=== PATIENT | female | born 1945 | race Caucasian/White ===

== ENCOUNTER → 2016-07-20 | Outpatient (CLI) | payer MEDICARE ==
[~2016-07-20] MED LIST: ASCO500T8 PO; BECL8.7A6 INH; CALC1CAP8 PO; CALC1TAB PO; CHOL40002 PO; ERGO2000 PO; FORM20VI INH; GUAI600T53 PO; IPRA4AER INH; MONT10TA6 PO; MULT-717 PO; OMNIPAQUE 350 MG/ML, 100ML BOTTLE ONE; OXYC-302 PO; THIA100T52 PO
== END | disposition home or self-care (01) ==
LOC: CFH 11:19
PROVIDERS: ATTEND Internal Medicine
DX: C20 Malignant neoplasm of rectum (principal); I70.0 Atherosclerosis of aorta; C78.02 Secondary malignant neoplasm of left lung; M51.34 Other intervertebral disc degeneration, thoracic region; R91.8 Other nonspecific abnormal finding of lung field; D73.89 Other diseases of spleen; K76.0 Fatty (change of) liver, not elsewhere classified; R16.0 Hepatomegaly, not elsewhere classified
CPT/HCPCS: 71260; 74177; Q9967

== ENCOUNTER → 2016-11-11 | Outpatient (CLI) | payer MEDICARE | END | disposition home or self-care (01) | LOC: CFH 10:46 | PROVIDERS: ATTEND Internal Medicine | DX: C78.01 Secondary malignant neoplasm of right lung (principal); C78.02 Secondary malignant neoplasm of left lung; C20 Malignant neoplasm of rectum; K76.0 Fatty (change of) liver, not elsewhere classified; R91.8 Other nonspecific abnormal finding of lung field; R16.0 Hepatomegaly, not elsewhere classified; I70.0 Atherosclerosis of aorta; N28.1 Cyst of kidney, acquired | CPT/HCPCS: 71260; 74177; Q9967 ==

== ENCOUNTER → 2017-02-10 | Outpatient (CLI) | payer MEDICARE ==
[~2017-02-10] MED LIST changes: -GUAI600T53 PO; +GUAI600T80 PO
== END | disposition home or self-care (01) ==
LOC: CFH 12:30
PROVIDERS: ATTEND Internal Medicine
DX: C78.02 Secondary malignant neoplasm of left lung (principal); M51.34 Other intervertebral disc degeneration, thoracic region; M41.84 Other forms of scoliosis, thoracic region; R16.0 Hepatomegaly, not elsewhere classified; K76.0 Fatty (change of) liver, not elsewhere classified; N28.1 Cyst of kidney, acquired; C20 Malignant neoplasm of rectum; M51.36 Other intervertebral disc degeneration, lumbar region
CPT/HCPCS: 71260; 74177; Q9967

== ENCOUNTER → 2017-07-19 | Outpatient (CLI) | payer MEDICARE | END | disposition home or self-care (01) | LOC: CFH 14:25 → EDSTATUS 15:15 | PROVIDERS: ATTEND Internal Medicine | DX: K76.89 Other specified diseases of liver (principal); R91.8 Other nonspecific abnormal finding of lung field; R16.0 Hepatomegaly, not elsewhere classified; C20 Malignant neoplasm of rectum | CPT/HCPCS: 71260; 74177; Q9967 ==

== ENCOUNTER → 2017-10-14 | Outpatient (CLI) | payer MEDICARE | END | disposition home or self-care (01) | LOC: CFH 09:52 | PROVIDERS: ATTEND Internal Medicine | DX: K76.89 Other specified diseases of liver (principal); R91.8 Other nonspecific abnormal finding of lung field; C20 Malignant neoplasm of rectum | CPT/HCPCS: 71260; 74177; Q9967 ==

== ENCOUNTER → 2018-01-13 | Outpatient (CLI) | payer MEDICARE | END | disposition home or self-care (01) | LOC: CFH 11:19 | PROVIDERS: ATTEND Internal Medicine | DX: R91.8 Other nonspecific abnormal finding of lung field (principal); R59.0 Localized enlarged lymph nodes; R16.0 Hepatomegaly, not elsewhere classified; C20 Malignant neoplasm of rectum; J44.9 Chronic obstructive pulmonary disease, unspecified; Z87.891 Personal history of nicotine dependence | CPT/HCPCS: 71260; 74177; Q9967 ==

== ENCOUNTER → 2018-05-08 | Outpatient (CLI) | payer MEDICARE | END | disposition home or self-care (01) | LOC: RAD 12:26 | PROVIDERS: ATTEND Internal Medicine | DX: C20 Malignant neoplasm of rectum (principal); R91.8 Other nonspecific abnormal finding of lung field; R59.1 Generalized enlarged lymph nodes; R16.0 Hepatomegaly, not elsewhere classified | CPT/HCPCS: 71260; 74177; Q9967 ==

== ENCOUNTER → 2018-08-10 | Outpatient (CLI) | payer MEDICARE, MEDICAID | END | disposition home or self-care (01) | LOC: CFH 09:52 | PROVIDERS: ATTEND Internal Medicine | DX: C20 Malignant neoplasm of rectum (principal); C78.00 Secondary malignant neoplasm of unspecified lung; R91.8 Other nonspecific abnormal finding of lung field; N28.1 Cyst of kidney, acquired; R16.0 Hepatomegaly, not elsewhere classified; I25.10 Atherosclerotic heart disease of native coronary artery without angina pectoris; I70.0 Atherosclerosis of aorta; M47.815 Spondylosis without myelopathy or radiculopathy, thoracolumbar region; D73.89 Other diseases of spleen; K76.89 Other specified diseases of liver; Z88.9 Allergy status to unspecified drugs, medicaments and biological substances | CPT/HCPCS: 71260; 74177; Q9967 ==

== ENCOUNTER → 2018-11-03 | Outpatient (CLI) | payer MEDICARE, MEDICAID | END | disposition home or self-care (01) | LOC: CFH 13:14 | PROVIDERS: ATTEND Internal Medicine | DX: C20 Malignant neoplasm of rectum (principal); I70.0 Atherosclerosis of aorta; R91.8 Other nonspecific abnormal finding of lung field; J98.11 Atelectasis; R59.0 Localized enlarged lymph nodes; M85.88 Other specified disorders of bone density and structure, other site; M47.814 Spondylosis without myelopathy or radiculopathy, thoracic region; M41.84 Other forms of scoliosis, thoracic region; K76.89 Other specified diseases of liver; N28.1 Cyst of kidney, acquired; Z98.890 Other specified postprocedural states | CPT/HCPCS: 71260; 74177; Q9967 ==

== ENCOUNTER 2019-02-27 08:32 | Day surgery (SDC) | payer MEDICARE, MEDICAID ==
[~2019-02-27] VITALS: Ht 162.6 cm; Wt 79.9 kg
[~2019-02-27 08:32] MED LIST changes: -OMNIPAQUE 350 MG/ML, 100ML BOTTLE ONE
[2019-02-27 09:23] VITALS: BP 123/74
[2019-02-27] MEDS ORDERED: LACTATED RINGERS 1,000 ML IV SCH (09:25)
[2019-02-27] MEDS ORDERED: CEFAZOLIN 1,000 MG in SODIUM CHLORIDE 0.9% 50 ML IV ONE (09:30)
[2019-02-27] MEDS ORDERED: [UNRECOGNIZED DRUG - OTHER] SQ (09:33)
[2019-02-27] MEDS ORDERED: CEFAZOLIN PMX 1GM/50ML 50 ML ONE (09:38)
[2019-02-27] MEDS ORDERED: LIDOCAINE 1%, 20ML ONE (09:45)
[2019-02-27] MEDS ORDERED: IPRA4AER INTRATRACH (10:11)
[2019-02-27] MEDS ORDERED: ALBU0.63 NEB (10:11)
[2019-02-27] MEDS ORDERED: FENTANYL PF 100 MCG/2ML ONE (11:24)
[2019-02-27] MEDS ORDERED: FLUMAZENIL 0.1 MG/1 ML, 5ML ONE (11:25)
[2019-02-27] MEDS ORDERED: NALOXONE 1 MG/ML, 2ML ONE (11:25)
[2019-02-27] MEDS ORDERED: MIDAZOLAM 1 MG/ML, 5ML ONE (11:25)
[2019-02-27] MEDS ORDERED: LIDOCAINE 1%, 10ML ONE (12:11)
== END 2019-02-27 13:36 | disposition home or self-care (01) ==
LOC: OUT 08:32
PROVIDERS: ATTEND Internal Medicine
DX: Z45.2 Encounter for adjustment and management of vascular access device (principal); C78.5 Secondary malignant neoplasm of large intestine and rectum; C34.92 Malignant neoplasm of unspecified part of left bronchus or lung; M25.561 Pain in right knee; E11.9 Type 2 diabetes mellitus without complications; J44.9 Chronic obstructive pulmonary disease, unspecified; E83.42 Hypomagnesemia; I10 Essential (primary) hypertension; Z79.84 Long term (current) use of oral hypoglycemic drugs
CPT/HCPCS: 36561; 77001; 99156; 99157; C1788; J0690; J1642; J2250; J3010; J2310

== ENCOUNTER 2019-03-29 23:05 | Inpatient (IN) | payer MEDICAID, MEDICARE ==
[~2019-03-29] VITALS: Ht 162.6 cm; Wt 68.7 kg
[~2019-03-29 23:05] MED LIST changes: +ALBU0.63 NEB; +IPRA4AER INTRATRACH; +[UNRECOGNIZED DRUG - OTHER] SQ
--- NOTE | 2019-03-29 23:38 | NUR ---
PLEAS[facility] LADY HERE ON CHEMO FOR COLON CANCER, LAST TREAMENT 2 WEEKS AGO ON TUESDAY, SINCE THAT TIME SHE HAS BEEN HAVING LOWER EXTREMITY PAIN WHICH THE [facility] TOLD HER WILL HAPPEN, PT STATES THAT THE PAIN RESOLVED ON THE R LEG HOWEVER THE LLE CONTINUES TO BE PAINFUL IN THE CALF AND HER TOES FEEL COLD, PULSE IS NOTED. PT STATES THAT IT BECAME WORSE ON TUESDAY.
--- NOTE | 2019-03-29 23:42 | NUR ---
JAMESON MORGAN STATES THAT SHE CAN NOT FEEL A PULSE, DOPPLER AND DR ELLIOTT TO BEDSIDE AT THIS TIME.
[2019-03-29] MEDS ORDERED: OMNIPAQUE 350 MG/ML, 100ML BOTTLE ONE (23:46)
[2019-03-30] MEDS ORDERED: SODIUM CHLORIDE FLUSH 10ML SYR IVF ONE
[2019-03-30] MEDS ORDERED: ONDANSETRON 2MG/ML, 2ML IVPush ONE
[2019-03-30] MEDS ORDERED: ONDANSETRON 2MG/ML, 2ML ONE (00:05)
[2019-03-30] MEDS ORDERED: MORPHINE SULFATE 4 MG/ML, 1ML ONE ×3 (00:06→02:25)
[2019-03-30 00:11] LABS: MEAN CORPUSCULAR HEMOGLOBIN 33.3 pg (27.0-34.8); MEAN CORPUSCULAR HGB CONC 33.3 g/dL (32.4-35.8); MEAN CORPUSCULAR VOLUME 100.1 fL (80-100); MEAN PLATELET VOLUME 9.2 fL (7.4-10.4); PLATELET COUNT 94 x10^3/uL (130-400); RED BLOOD COUNT 4.66 x10^6/uL (3.82-5.3); RED CELL DISTRIBUTION WIDTH 14.7 % (9.6-15.2)
[2019-03-30] MEDS: MORPHINE SULFATE 4 MG/ML, 1ML IVPush PRN ×2 (00:12→00:45)
--- NOTE | 2019-03-30 00:13 | NUR ---
US AT BEDSIDE, PORT ACCESSED PT MEDICATED FOR PAIN PER ORDER. TOLERATE WELL. CALL [facility] IN [place] AND AWARE OF USE, FAMILY AT BEDSIDE
[2019-03-30 00:14] LABS: ALANINE AMINOTRANSFERASE 47 U/L (12-78); ALBUMIN 3.7 g/dL (3.4-5.0); ANION GAP 8 mmol/L (5-15); CALCIUM 9.5 mg/dL (8.5-10.1); CHLORIDE 109 mmol/L (98-107)
[2019-03-30 00:16] LABS: ALKALINE PHOSPHATASE 214 U/L (45-117); TOTAL PROTEIN 7.7 g/dL (6.4-8.2)
[2019-03-30 00:39] LABS: BASOPHILS # (AUTO) 0.02 x10^3/uL (0-0.1); BASOPHILS % (AUTO) 0 % (0-1); EOSINOPHILS # (AUTO) 0.08 x10^3/uL (0-0.4); EOSINOPHILS % (AUTO) 1 % (1-7); LYMPHOCYTES # (AUTO) 0.96 x10^3/uL (1-3.4); LYMPHOCYTES % (AUTO) 9 % (22-44); MD SCAN; MONOCYTES # (AUTO) 0.89 x10^3/uL (0.2-0.8); MONOCYTES % (AUTO) 9 % (2-9); NEUTROPHILS # (AUTO) 8.56 x10^3/uL (1.8-6.8); NEUTROPHILS % (AUTO) 81 % (42-75)
--- NOTE | 2019-03-30 00:45 | NUR ---
PT TO CT AT THIS TIME, MEDICATED FOR PAIN PRIO TO GOING.
--- NOTE | 2019-03-30 01:43 | NUR ---
PT RESTING MORE COMFORTABLY AT THIS TIME, AWAIT CT READ. FAMILY AT BEDSIDE
[2019-03-30] MEDS ORDERED: HEPARIN 5,000 UNITS/ML, 1ML ONE (02:24)
[2019-03-30] MEDS ORDERED: HEPARIN 25,000 UNITS/500ML PMX 500 ML ONE (02:25)
[2019-03-30 02:30] LABS: INTERNATIONAL NORMALIZED RATIO 1.08 (0.93-1.1); PROTHROMBIN TIME 11.3 Seconds (9.6-11.5)
[2019-03-30] MEDS ORDERED: HEPARIN 5,000 UNITS/ML, 1ML IV ONE (02:30)
[2019-03-30] MEDS ORDERED: HEPARIN 5,000 UNITS/ML, 1ML IV PRN ×2 (02:30→09:30)
[2019-03-30] MEDS ORDERED: HEPARIN 25,000 UNITS/500ML PMX 500 ML IV PRN ×2 (02:30→09:30)
[2019-03-30] MEDS ORDERED: ONDANSETRON 2MG/ML, 2ML IVPush PRN ×2 (02:30→04:00)
[2019-03-30] MEDS ORDERED: MORPHINE SULFATE 4 MG/ML, 1ML IVPush PRN (02:30)
[2019-03-30 03:10] VITALS: BP 146/82
[2019-03-30] MEDS ORDERED: SODIUM CHLORIDE 0.9% 1,000 ML IV SCH ×2 (03:45→08:00)
[2019-03-30] MEDS ORDERED: ONDANSETRON ODT 4 MG PO PRN (04:00)
[2019-03-30] MEDS ORDERED: POLYETHYLENE GLYCOL 17 GM PACKET PO PRN (04:00)
[2019-03-30] MEDS ORDERED: hydrALAzine 20 MG/ML, 1ML IVPush PRN (04:00)
[2019-03-30] MEDS ORDERED: PROMETHAZINE 25 MG/ML, 1ML IM PRN (04:00)
[2019-03-30] MEDS ORDERED: ACETAMINOPHEN 325 MG TABLET PO PRN (04:00)
[2019-03-30] MEDS: OXYcodone IR 5MG TABLET PO PRN ×3 (04:25→18:20)
[2019-03-30] MEDS ORDERED: ALBUTEROL SULFATE 2.5 MG/3 ML NPPB PRN (04:30)
[2019-03-30 06:57] LABS: FREE T4 (FREE THYROXINE) 1.19 ng/dL (0.76-1.46)
[2019-03-30 07:48] VITALS: BP 169/89
[2019-03-30 14:19] VITALS: BP 151/81
[2019-03-30] MEDS: morphine SULFATE 10 MG/ML, 1ML IVPush PRN ×3 (14:32→22:58)
[2019-03-30] MEDS ORDERED: VISIPAQUE 270 MG/ML, 150ML BOTTLE ONE (15:00)
[2019-03-30] MEDS ORDERED: FENTANYL PF 100 MCG/2ML ONE ×2 (15:11)
[2019-03-30] MEDS ORDERED: NALOXONE 1 MG/ML, 2ML ONE (15:12)
[2019-03-30] MEDS ORDERED: NITROGLYCERIN 5 MG/ML, 10ML ONE (15:12)
[2019-03-30] MEDS ORDERED: FLUMAZENIL 0.1 MG/1 ML, 5ML ONE (15:12)
[2019-03-30] MEDS ORDERED: PROTAMINE SULFATE 10 MG/ML, 25ML ONE (15:12)
[2019-03-30] MEDS ORDERED: MIDAZOLAM 1 MG/ML, 5ML ONE (15:12)
[2019-03-30] MEDS ORDERED: HEPARIN 1,000 UNITS/ML, 10ML ONE (15:14)
[2019-03-30] MEDS ORDERED: ALTEPLASE 10 MG in SODIUM CHLORIDE 0.9% 90 ML IV SCH ×2 (15:30→17:30)
[2019-03-30] MEDS ORDERED: LIDOCAINE 1%, 10ML ONE (15:32)
[2019-03-30] MEDS: ALTEPLASE 10 MG in SODIUM CHLORIDE 0.9% 90 ML INJ SCH ×2 (17:29→21:48)
[2019-03-30] MEDS ORDERED: HEPARIN 25,000 UNITS/500ML PMX 500 ML INJ SCH ×2 (17:30)
[2019-03-30] MEDS ORDERED: ONDANSETRON 2MG/ML, 2ML IV PRN (18:00)
[2019-03-30] MEDS: LACTATED RINGERS 1,000 ML IV SCH (18:04)
[2019-03-30] MEDS: CEFAZOLIN 2,000 MG in SODIUM CHLORIDE 0.9% 50 ML IV SCH (20:25)
[2019-03-30] MEDS ORDERED: INSULIN LISPRO 100 UNITS/ML, PEN SQ-INSULIN SCH (21:00)
[2019-03-30] MEDS: INSULIN LISPRO 100 UNITS/ML, PEN SQ-INSULIN SCH (21:27)
[2019-03-30 23:53] LABS: FIBRINOGEN 259 mg/dL (200-340); PARTIAL THROMBOPLASTIN TIME 34 Seconds (25-31)
[2019-03-31] LABS: INTERNATIONAL NORMALIZED RATIO 1.15 (0.93-1.1)
[2019-03-31 00:47] LABS: MEAN CORPUSCULAR HEMOGLOBIN 32.5 pg (27.0-34.8); MEAN CORPUSCULAR HGB CONC 32.6 g/dL (32.4-35.8); MEAN CORPUSCULAR VOLUME 99.7 fL (80-100); RED BLOOD COUNT 4.24 x10^6/uL (3.82-5.3); RED CELL DISTRIBUTION WIDTH 15.1 % (9.6-15.2)
[2019-03-31 00:52] LABS: MEAN PLATELET VOLUME 8.7 fL (7.4-10.4); PLATELET COUNT 25 x10^3/uL (130-400)
[2019-03-31 01:20] LABS: MD YES
[2019-03-31 01:28] LABS: BAND#(MANUAL) 0.17 x10^3/uL; BANDS%(MANUAL) 3 % (0-7); LYMPH#(MANUAL) 0.81 x10^3/uL (1-3.4); LYMPHS% (MANUAL) 14 % (22-44); MONOS% (MANUAL) 12 % (2-9); SEG#(MANUAL) 4.12 x10^3/uL (1.8-6.8); SEGS% (MANUAL) 71 % (42-75)
[2019-03-31 01:30] LABS: <PLATELET ESTIMATE> DECREASED; <PLT MORPHOLOGY> NORMAL PLT MORPH; <RBC MORPHOLOGY> NORMAL
[2019-03-31] MEDS ORDERED: ARGATROBAN 250 MG in SODIUM CHLORIDE 0.9% 247.5 ML IV PRN ×3 (01:30→13:00)
[2019-03-31 02:14] LABS: HIT RESULT NEGATIVE (NEGATIVE)
[2019-03-31] MEDS: CEFAZOLIN 2,000 MG in SODIUM CHLORIDE 0.9% 50 ML IV SCH ×3 (02:44→22:43)
[2019-03-31] MEDS: INSULIN LISPRO 100 UNITS/ML, PEN SQ-INSULIN SCH ×4 (03:30→22:06)
[2019-03-31] MEDS: LACTATED RINGERS 1,000 ML IV SCH ×3 (04:01→23:50)
[2019-03-31 04:43] LABS: CHLORIDE 105 mmol/L (98-107)
[2019-03-31 04:44] LABS: INTERNATIONAL NORMALIZED RATIO 1.29 (0.93-1.1); PROTHROMBIN TIME 13.4 Seconds (9.6-11.5)
[2019-03-31 04:51] LABS: ALANINE AMINOTRANSFERASE 72 U/L (12-78); ALBUMIN 2.7 g/dL (3.4-5.0); ALKALINE PHOSPHATASE 156 U/L (45-117); ANION GAP 6 mmol/L (5-15); BILIRUBIN,TOTAL 0.6 mg/dL (0.2-1.0); CALCIUM 8.3 mg/dL (8.5-10.1); CHOL/HDL RATIO 4.9; CHOLESTEROL, TOTAL 168 mg/dL (140-239); HDL CHOL % 20 % (28-40); HDL CHOLESTEROL (DIRECT) 34 mg/dL (40-60); LDL CHOLESTEROL,CALCULATED 104 mg/dL (54-169); LDL/HDL RATIO 3.1 (0.5-3.0); MEAN CORPUSCULAR HEMOGLOBIN 32.7 pg (27.0-34.8); MEAN CORPUSCULAR HGB CONC 32.9 g/dL (32.4-35.8); MEAN CORPUSCULAR VOLUME 99.3 fL (80-100); RED BLOOD COUNT 4.09 x10^6/uL (3.82-5.3); RED CELL DISTRIBUTION WIDTH 15.2 % (9.6-15.2); TOTAL PROTEIN 6.4 g/dL (6.4-8.2); TRIGLYCERIDES 152 mg/dL (50-200); VLDL CHOLESTEROL 30 mg/dL (0-25)
[2019-03-31 05:39] LABS: MD YES
[2019-03-31 05:43] LABS: PLATELET COUNT 26 x10^3/uL (130-400)
[2019-03-31 05:44] LABS: BANDS%(MANUAL) 5 % (0-7); BASOS#(MANUAL) 0.06 x10^3/uL (0-0.1); BASOS% (MANUAL) 1 % (0-1); EOS#(MANUAL) 0.18 x10^3/uL (0.0-0.4); EOS% (MANUAL) 3 % (1-7); LYMPH#(MANUAL) 0.41 x10^3/uL (1-3.4); LYMPHS% (MANUAL) 7 % (22-44); MONOS% (MANUAL) 17 % (2-9); SEG#(MANUAL) 3.95 x10^3/uL (1.8-6.8); SEGS% (MANUAL) 67 % (42-75)
[2019-03-31 05:46] LABS: <PLATELET ESTIMATE> DECREASED; <PLT MORPHOLOGY> NORMAL PLT MORPH; POLYCHROMASIA 1+
[2019-03-31] MEDS: ALTEPLASE 10 MG in SODIUM CHLORIDE 0.9% 90 ML INJ SCH (07:49)
[2019-03-31 12:23] LABS: MEAN CORPUSCULAR HEMOGLOBIN 32.5 pg (27.0-34.8); MEAN CORPUSCULAR HGB CONC 32.8 g/dL (32.4-35.8); MEAN CORPUSCULAR VOLUME 99.2 fL (80-100); RED BLOOD COUNT 4.02 x10^6/uL (3.82-5.3); RED CELL DISTRIBUTION WIDTH 15.3 % (9.6-15.2)
[2019-03-31 12:28] LABS: BASOPHILS # (AUTO) 0.03 x10^3/uL (0-0.1); BASOPHILS % (AUTO) 1 % (0-1); EOSINOPHILS # (AUTO) 0.05 x10^3/uL (0-0.4); EOSINOPHILS % (AUTO) 1 % (1-7); LYMPHOCYTES # (AUTO) 0.78 x10^3/uL (1-3.4); LYMPHOCYTES % (AUTO) 13 % (22-44); MD SCAN; MONOCYTES # (AUTO) 0.82 x10^3/uL (0.2-0.8); MONOCYTES % (AUTO) 13 % (2-9); NEUTROPHILS # (AUTO) 4.48 x10^3/uL (1.8-6.8); NEUTROPHILS % (AUTO) 73 % (42-75)
[2019-03-31 12:29] LABS: MEAN PLATELET VOLUME 9.4 fL (7.4-10.4)
[2019-03-31 12:30] LABS: PLATELET COUNT 28 x10^3/uL (130-400)
[2019-03-31 12:35] LABS: INTERNATIONAL NORMALIZED RATIO 1.49 (0.93-1.1); PROTHROMBIN TIME 15.4 Seconds (9.6-11.5)
[2019-03-31] MEDS ORDERED: VISIPAQUE 270 MG/ML, 50ML BOTTLE ONE (13:30)
[2019-03-31] MEDS ORDERED: LIDOCAINE 1%, 10ML ONE (13:45)
[2019-03-31] MEDS ORDERED: FENTANYL PF 100 MCG/2ML ONE (14:05)
[2019-03-31] MEDS ORDERED: DEXAMETHASONE 4 MG/ML, 1ML ONE (14:16)
[2019-03-31] MEDS ORDERED: PROPOFOL 10 MG/ML, 20ML ONE (14:16)
[2019-03-31] MEDS ORDERED: CEFAZOLIN 1,000 MG ONE (14:16)
[2019-03-31] MEDS ORDERED: PHENYLEPHRINE 10 MG/ML ONE (14:16)
[2019-03-31] MEDS ORDERED: ONDANSETRON 2MG/ML, 2ML ONE (14:16)
[2019-03-31] MEDS ORDERED: hydrALAzine 20 MG/ML, 1ML IV PRN (15:00)
[2019-03-31] MEDS ORDERED: OXYcodone 5 MG/5 ML ORAL.SOL UDC PO PRN (15:00)
[2019-03-31] MEDS ORDERED: PROMETHAZINE 25 MG/ML, 1ML IV PRN (15:00)
[2019-03-31] MEDS ORDERED: METOPROLOL 1 MG/ML, 5ML IV PRN (15:00)
[2019-03-31] MEDS ORDERED: HYDROmorphone 2 MG/ML, 1ML IVPush PRN (15:00)
[2019-03-31] MEDS ORDERED: ALBUTEROL/IPRATROPIUM 2.5MG/0.5MG, 3 ML NPPB PRN (15:00)
[2019-03-31] MEDS ORDERED: FENTANYL PF 100 MCG/2ML IV PRN (15:00)
[2019-03-31 16:32] LABS: INTERNATIONAL NORMALIZED RATIO 1.26 (0.93-1.1); PROTHROMBIN TIME 13.1 Seconds (9.6-11.5)
[2019-03-31] MEDS: HEPARIN 25,000 UNITS/500ML PMX 500 ML IV PRN (16:41)
[2019-03-31] MEDS ORDERED: hydrALAzine 20 MG/ML, 1ML IVPush PRN (17:00)
[2019-04-01] MEDS: INSULIN LISPRO 100 UNITS/ML, PEN SQ-INSULIN SCH ×4 (03:30→22:44)
[2019-04-01 04:13] LABS: MEAN CORPUSCULAR HEMOGLOBIN 32.4 pg (27.0-34.8); MEAN CORPUSCULAR HGB CONC 32.6 g/dL (32.4-35.8); MEAN CORPUSCULAR VOLUME 99.4 fL (80-100); MEAN PLATELET VOLUME 9.8 fL (7.4-10.4); RED BLOOD COUNT 3.69 x10^6/uL (3.82-5.3); RED CELL DISTRIBUTION WIDTH 15.2 % (9.6-15.2)
[2019-04-01 04:18] LABS: ANION GAP 3 mmol/L (5-15); CHLORIDE 105 mmol/L (98-107); CREATININE 0.58 mg/dL (0.55-1.02)
[2019-04-01 04:24] LABS: PLATELET COUNT 21 x10^3/uL (130-400)
[2019-04-01 04:32] LABS: BASOPHILS % (AUTO) 0 % (0-1); EOSINOPHILS % (AUTO) 0 % (1-7); LYMPHOCYTES # (AUTO) 0.45 x10^3/uL (1-3.4); LYMPHOCYTES % (AUTO) 7 % (22-44); MD SCAN; MONOCYTES # (AUTO) 0.87 x10^3/uL (0.2-0.8); MONOCYTES % (AUTO) 14 % (2-9); NEUTROPHILS % (AUTO) 79 % (42-75)
[2019-04-01] MEDS: CEFAZOLIN 2,000 MG in SODIUM CHLORIDE 0.9% 50 ML IV SCH ×3 (06:05→22:36)
[2019-04-01] MEDS: LACTATED RINGERS 1,000 ML IV SCH (09:37)
[2019-04-01] MEDS ORDERED: FLUT1BLS3 IH (13:41)
[2019-04-01 14:05] VITALS: BP 111/41
[2019-04-01 14:23] VITALS: BP 110/43
[2019-04-01 14:53] VITALS: BP 129/70
[2019-04-01 19:19] VITALS: BP 120/60
[2019-04-01] MEDS: HEPARIN 25,000 UNITS/500ML PMX 500 ML IV PRN (22:36)
[2019-04-02] VITALS (9 sets, daily range): BP systolic 102–134; BP diastolic 62–79
[2019-04-02 05:08] LABS: MEAN CORPUSCULAR HEMOGLOBIN 33.2 pg (27.0-34.8); MEAN CORPUSCULAR HGB CONC 32.5 g/dL (32.4-35.8); MEAN CORPUSCULAR VOLUME 102.2 fL (80-100); MEAN PLATELET VOLUME 9.5 fL (7.4-10.4); PLATELET COUNT 26 x10^3/uL (130-400); RED BLOOD COUNT 3.32 x10^6/uL (3.82-5.3); RED CELL DISTRIBUTION WIDTH 15.5 % (9.6-15.2)
[2019-04-02 05:16] LABS: ANION GAP 5 mmol/L (5-15); CHLORIDE 104 mmol/L (98-107); CREATININE 0.57 mg/dL (0.55-1.02)
[2019-04-02 06:07] LABS: BASOPHILS # (AUTO) 0.02 x10^3/uL (0-0.1); BASOPHILS % (AUTO) 0 % (0-1); EOSINOPHILS # (AUTO) 0.05 x10^3/uL (0-0.4); EOSINOPHILS % (AUTO) 1 % (1-7); LYMPHOCYTES # (AUTO) 1.07 x10^3/uL (1-3.4); LYMPHOCYTES % (AUTO) 19 % (22-44); MD SCAN; MONOCYTES # (AUTO) 0.78 x10^3/uL (0.2-0.8); MONOCYTES % (AUTO) 14 % (2-9); NEUTROPHILS # (AUTO) 3.69 x10^3/uL (1.8-6.8); NEUTROPHILS % (AUTO) 66 % (42-75)
[2019-04-02] MEDS: CEFAZOLIN 2,000 MG in SODIUM CHLORIDE 0.9% 50 ML IV SCH ×3 (06:20→21:37)
[2019-04-02] MEDS: INSULIN LISPRO 100 UNITS/ML, PEN SQ-INSULIN SCH ×4 (07:00→20:38)
[2019-04-02] MEDS: TRELEGY INH SCH (09:00)
[2019-04-02] MEDS: OXYcodone IR 5MG TABLET PO PRN ×4 (10:44→20:35)
[2019-04-02] MEDS: morphine SULFATE 10 MG/ML, 1ML IVPush PRN (13:45)
[2019-04-02] MEDS: HEPARIN 25,000 UNITS/500ML PMX 500 ML IV PRN (17:19)
[2019-04-03] MEDS: OXYcodone IR 5MG TABLET PO PRN ×5 (02:05→22:17)
[2019-04-03 02:11] VITALS: BP 125/70
[2019-04-03] MEDS: CEFAZOLIN 2,000 MG in SODIUM CHLORIDE 0.9% 50 ML IV SCH ×3 (06:13→22:17)
[2019-04-03] MEDS: INSULIN LISPRO 100 UNITS/ML, PEN SQ-INSULIN SCH ×4 (07:09→20:01)
[2019-04-03 08:09] VITALS: BP 144/72
[2019-04-03] MEDS: TRELEGY INH SCH (09:00)
[2019-04-03 09:51] LABS: MEAN CORPUSCULAR HGB CONC 32.7 g/dL (32.4-35.8); MEAN CORPUSCULAR VOLUME 100.8 fL (80-100); RED BLOOD COUNT 3.35 x10^6/uL (3.82-5.3); RED CELL DISTRIBUTION WIDTH 15.3 % (9.6-15.2)
[2019-04-03] MEDS: HEPARIN 25,000 UNITS/500ML PMX 500 ML IV PRN ×2 (09:56→22:52)
[2019-04-03 10:31] LABS: BASOPHILS # (AUTO) 0.03 x10^3/uL (0-0.1); BASOPHILS % (AUTO) 1 % (0-1); EOSINOPHILS # (AUTO) 0.15 x10^3/uL (0-0.4); EOSINOPHILS % (AUTO) 3 % (1-7); LYMPHOCYTES # (AUTO) 1.02 x10^3/uL (1-3.4); LYMPHOCYTES % (AUTO) 20 % (22-44); MD SCAN; MONOCYTES # (AUTO) 0.61 x10^3/uL (0.2-0.8); MONOCYTES % (AUTO) 12 % (2-9); NEUTROPHILS # (AUTO) 3.36 x10^3/uL (1.8-6.8); NEUTROPHILS % (AUTO) 65 % (42-75); PLATELET COUNT 66 x10^3/uL (130-400)
[2019-04-03 12:56] VITALS: BP 155/75
[2019-04-03] MEDS: morphine SULFATE 10 MG/ML, 1ML IVPush PRN (18:39)
[2019-04-03 19:17] VITALS: BP 145/65
[2019-04-04] VITALS (7 sets, daily range): BP systolic 136–191; BP diastolic 67–83
[2019-04-04] MEDS: morphine SULFATE 10 MG/ML, 1ML IVPush PRN ×2 (00:45→10:06)
[2019-04-04] MEDS: OXYcodone IR 5MG TABLET PO PRN ×3 (05:15→16:29)
[2019-04-04] MEDS: CEFAZOLIN 2,000 MG in SODIUM CHLORIDE 0.9% 50 ML IV SCH ×2 (06:00→15:07)
[2019-04-04 06:13] LABS: MEAN CORPUSCULAR HEMOGLOBIN 33.2 pg (27.0-34.8); MEAN CORPUSCULAR HGB CONC 32.9 g/dL (32.4-35.8); MEAN CORPUSCULAR VOLUME 100.8 fL (80-100); RED BLOOD COUNT 3.33 x10^6/uL (3.82-5.3); RED CELL DISTRIBUTION WIDTH 15.2 % (9.6-15.2)
[2019-04-04 06:45] LABS: MEAN PLATELET VOLUME 9.1 fL (7.4-10.4)
[2019-04-04 06:47] LABS: PLATELET COUNT 36 x10^3/uL (130-400)
[2019-04-04 06:49] LABS: MD YES
[2019-04-04 06:51] LABS: BAND#(MANUAL) 0.11 x10^3/uL; BANDS%(MANUAL) 2 % (0-7); EOS#(MANUAL) 0.42 x10^3/uL (0.0-0.4); EOS% (MANUAL) 8 % (1-7); LYMPH#(MANUAL) 1.06 x10^3/uL (1-3.4); LYMPHS% (MANUAL) 20 % (22-44); METAMYELOCYTES# (MANUAL) 0.05 x10^3/uL (0-0); METAMYELOCYTES% (MANUAL) 1 % (0-1); MONOS#(MANUAL) 0.64 x10^3/uL (0.3-2.7); MONOS% (MANUAL) 12 % (2-9); MYELOCYTES# (MANUAL) 0.05 x10^3/uL (0-0); MYELOCYTES% (MANUAL) 1 % (0-0); NRBC % (MANUAL) 2 % (0-1); SEG#(MANUAL) 2.97 x10^3/uL (1.8-6.8); SEGS% (MANUAL) 56 % (42-75)
[2019-04-04 06:52] LABS: <PLATELET ESTIMATE> DECREASED; <PLT MORPHOLOGY> NORMAL PLT MORPH; POLYCHROMASIA 1+
[2019-04-04] MEDS: INSULIN LISPRO 100 UNITS/ML, PEN SQ-INSULIN SCH ×4 (07:15→21:00)
[2019-04-04] MEDS: TRELEGY INH SCH (08:00)
[2019-04-04] MEDS: HEPARIN 25,000 UNITS/500ML PMX 500 ML IV PRN (11:03)
[2019-04-04] MEDS: MORPHINE SULFATE 4 MG/ML, 1ML IVPush PRN ×2 (12:42→17:41)
[2019-04-04] MEDS ORDERED: HEPARIN 25,000 UNITS/500ML PMX 500 ML IV PRN (15:30)
[2019-04-04] MEDS ORDERED: ENOXAPARIN 100 MG/ML SQ SCH ×2 (16:00→16:37)
[2019-04-04] MEDS ORDERED: SUCCINYLCHOLINE 20 MG/ML, 10ML ONE (17:04)
[2019-04-04] MEDS ORDERED: CEFAZOLIN 1,000 MG ONE (17:04)
[2019-04-04] MEDS ORDERED: ROCURONIUM 10MG/ML,5ML ONE (17:04)
[2019-04-04] MEDS ORDERED: PROPOFOL 10 MG/ML, 20ML ONE (17:04)
[2019-04-04] MEDS ORDERED: ESMOLOL 100 MG/10 ML ONE (17:05)
[2019-04-04] MEDS ORDERED: MIDAZOLAM 1 MG/ML, 2ML ONE (18:53)
[2019-04-04] MEDS ORDERED: FENTANYL PF 250 MCG/5ML ONE ×2 (18:53→22:21)
[2019-04-04] MEDS ORDERED: HEPARIN 1,000 UNITS/ML, 30ML ONE (18:58)
[2019-04-04] MEDS ORDERED: BACITRACIN 50,000 UNIT ONE (18:58)
[2019-04-04] MEDS ORDERED: PAPAVERINE 30 MG/ML, 2ML ONE (18:58)
[2019-04-04] MEDS ORDERED: PROTAMINE SULFATE 10 MG/ML, 5ML ONE (18:58)
[2019-04-04] MEDS ORDERED: THROMBIN SPRAY 20,000 UNIT SPRAY TP ONE (18:59)
[2019-04-04] MEDS ORDERED: BUPIVACAINE/PF 0.5% ONE (19:02)
[2019-04-04] MEDS ORDERED: VISIPAQUE 270 MG/ML, 150ML BOTTLE IV ONE (20:42)
[2019-04-04] MEDS ORDERED: BACITRACIN 50,000 UNIT IRRIG ONE (20:43)
[2019-04-04] MEDS ORDERED: HEPARIN 1,000 UNITS/ML, 30ML IVPush ONE (20:46)
[2019-04-04] MEDS ORDERED: THROMBIN 20,000 UNIT VIAL TP ONE (20:47)
[2019-04-04] MEDS ORDERED: NACL IV ONE (21:16)
[2019-04-04] MEDS ORDERED: ARGATROBAN IV ONE (21:16)
[2019-04-04] MEDS ORDERED: SODIUM BICARBONATE 1 MEQ/ML, 50ML VIAL ONE (21:47)
[2019-04-04] MEDS ORDERED: ALBUMIN HUMAN 5% 500 ML ONE (22:06)
[2019-04-04] MEDS ORDERED: ARGATROBAN ONE (22:19)
[2019-04-04] MEDS ORDERED: SODIUM CHLORIDE 0.9%, 250ML ONE (22:20)
[2019-04-04 22:25] LABS: MEAN CORPUSCULAR HEMOGLOBIN 32.8 pg (27.0-34.8); MEAN CORPUSCULAR HGB CONC 33.2 g/dL (32.4-35.8); RED BLOOD COUNT 2.86 x10^6/uL (3.82-5.3); RED CELL DISTRIBUTION WIDTH 15.3 % (9.6-15.2)
[2019-04-04 22:30] LABS: INTERNATIONAL NORMALIZED RATIO 1.16 (0.93-1.1); PROTHROMBIN TIME 12.1 Seconds (9.6-11.5)
[2019-04-04] MEDS ORDERED: ARGATROBAN 250 MG in SODIUM CHLORIDE 0.9% 247.5 ML IV ONE (22:30)
[2019-04-04 22:36] LABS: BASOPHILS # (AUTO) 0.02 x10^3/uL (0-0.1); BASOPHILS % (AUTO) 0 % (0-1); EOSINOPHILS # (AUTO) 0.05 x10^3/uL (0-0.4); EOSINOPHILS % (AUTO) 1 % (1-7); LYMPHOCYTES # (AUTO) 0.37 x10^3/uL (1-3.4); LYMPHOCYTES % (AUTO) 6 % (22-44); MEAN PLATELET VOLUME 8.5 fL (7.4-10.4); MONOCYTES # (AUTO) 0.48 x10^3/uL (0.2-0.8); MONOCYTES % (AUTO) 8 % (2-9); NEUTROPHILS # (AUTO) 5.54 x10^3/uL (1.8-6.8); NEUTROPHILS % (AUTO) 86 % (42-75)
[2019-04-04 22:40] LABS: PLATELET COUNT 38 x10^3/uL (130-400)
[2019-04-04 22:41] LABS: MD YES
[2019-04-04 22:45] LABS: EOS#(MANUAL) 0.07 x10^3/uL (0.0-0.4); EOS% (MANUAL) 1 % (1-7); LYMPH#(MANUAL) 0.52 x10^3/uL (1-3.4); LYMPHS% (MANUAL) 8 % (22-44); MONOS#(MANUAL) 0.52 x10^3/uL (0.3-2.7); MONOS% (MANUAL) 8 % (2-9); SEGS% (MANUAL) 83 % (42-75)
[2019-04-04 22:46] LABS: <PLATELET ESTIMATE> DECREASED; <PLT MORPHOLOGY> NORMAL PLT MORPH; ANISOCYTOSIS 1+
[2019-04-04] MEDS ORDERED: VISIPAQUE 270 MG/ML, 50ML BOTTLE ONE (23:32)
[2019-04-04] MEDS ORDERED: VISIPAQUE 270 MG/ML, 150ML BOTTLE ONE (23:32)
[2019-04-05 00:55] LABS: MEAN CORPUSCULAR HEMOGLOBIN 32.7 pg (27.0-34.8); MEAN CORPUSCULAR HGB CONC 33.4 g/dL (32.4-35.8); MEAN CORPUSCULAR VOLUME 97.8 fL (80-100); RED BLOOD COUNT 3.41 x10^6/uL (3.82-5.3); RED CELL DISTRIBUTION WIDTH 15.6 % (9.6-15.2)
[2019-04-05 00:56] LABS: ANION GAP 6 mmol/L (5-15); CALCIUM 8.2 mg/dL (8.5-10.1); CHLORIDE 107 mmol/L (98-107); CREATININE 0.63 mg/dL (0.55-1.02)
[2019-04-05] MEDS: MORPHINE SULFATE 4 MG/ML, 1ML IVPush PRN ×4 (01:11→14:38)
[2019-04-05] MEDS: INSULIN LISPRO 100 UNITS/ML, PEN SQ-INSULIN SCH ×5 (01:20→20:53)
[2019-04-05 01:29] LABS: INTERNATIONAL NORMALIZED RATIO 5.44 (0.93-1.1); PROTHROMBIN TIME 53.5 Seconds (9.6-11.5)
[2019-04-05 01:48] LABS: BASOPHILS # (AUTO) 0.01 x10^3/uL (0-0.1); BASOPHILS % (AUTO) 0 % (0-1); EOSINOPHILS # (AUTO) 0.09 x10^3/uL (0-0.4); EOSINOPHILS % (AUTO) 1 % (1-7); LYMPHOCYTES # (AUTO) 0.59 x10^3/uL (1-3.4); LYMPHOCYTES % (AUTO) 8 % (22-44); MD SCAN; MONOCYTES # (AUTO) 0.54 x10^3/uL (0.2-0.8); MONOCYTES % (AUTO) 8 % (2-9); NEUTROPHILS # (AUTO) 5.87 x10^3/uL (1.8-6.8); NEUTROPHILS % (AUTO) 83 % (42-75)
[2019-04-05 01:50] LABS: PLATELET COUNT 30 x10^3/uL (130-400)
[2019-04-05] MEDS: CEFAZOLIN 2,000 MG in SODIUM CHLORIDE 0.9% 50 ML IV SCH ×3 (02:01→18:19)
[2019-04-05] MEDS ORDERED: ARGATROBAN 250 MG in SODIUM CHLORIDE 0.9% 247.5 ML IV PRN (02:30)
[2019-04-05 04:48] LABS: ANION GAP 8 mmol/L (5-15); CALCIUM 7.8 mg/dL (8.5-10.1); CHLORIDE 106 mmol/L (98-107); CREATININE 0.55 mg/dL (0.55-1.02)
[2019-04-05 04:54] LABS: INTERNATIONAL NORMALIZED RATIO 5.34 (0.93-1.1); PROTHROMBIN TIME 52.6 Seconds (9.6-11.5)
[2019-04-05 05:46] LABS: MEAN CORPUSCULAR HGB CONC 33.2 g/dL (32.4-35.8); MEAN CORPUSCULAR VOLUME 96.4 fL (80-100); MEAN PLATELET VOLUME 9.1 fL (7.4-10.4)
[2019-04-05 05:47] LABS: MD YES; PLATELET COUNT 26 x10^3/uL (130-400)
[2019-04-05 05:49] LABS: BAND#(MANUAL) 0.51 x10^3/uL; BANDS%(MANUAL) 7 % (0-7); EOS#(MANUAL) 0.07 x10^3/uL (0.0-0.4); EOS% (MANUAL) 1 % (1-7); LYMPH#(MANUAL) 0.88 x10^3/uL (1-3.4); LYMPHS% (MANUAL) 12 % (22-44); METAMYELOCYTES# (MANUAL) 0.15 x10^3/uL (0-0); METAMYELOCYTES% (MANUAL) 2 % (0-1); MONOS#(MANUAL) 0.44 x10^3/uL (0.3-2.7); MONOS% (MANUAL) 6 % (2-9); SEG#(MANUAL) 5.26 x10^3/uL (1.8-6.8); SEGS% (MANUAL) 72 % (42-75)
[2019-04-05 05:50] LABS: <PLATELET ESTIMATE> DECREASED; <PLT MORPHOLOGY> NORMAL PLT MORPH; ANISOCYTOSIS 1+; POLYCHROMASIA 1+
[2019-04-05] MEDS: OXYcodone IR 5MG TABLET PO PRN ×3 (08:20→20:46)
[2019-04-05] MEDS: POTASSIUM CHLORIDE 20 MEQ TAB.ER.PRT PO SCH ×2 (08:20→16:42)
[2019-04-05] MEDS: TRELEGY INH SCH (12:00)
[2019-04-05 14:29] VITALS: BP 121/72
[2019-04-05] MEDS: ARGATROBAN 250 MG in SODIUM CHLORIDE 0.9% 247.5 ML IV PRN (14:38)
[2019-04-05 21:03] VITALS: BP 119/64
[2019-04-06 00:24] VITALS: BP 106/61
[2019-04-06 00:38] VITALS: BP 109/68
[2019-04-06] MEDS: OXYcodone IR 5MG TABLET PO PRN ×6 (00:55→22:19)
[2019-04-06] MEDS: DOCUSATE 100 MG CAPSULE PO PRN (01:04)
[2019-04-06 02:00] VITALS: BP 106/61
[2019-04-06] MEDS: CEFAZOLIN 2,000 MG in SODIUM CHLORIDE 0.9% 50 ML IV SCH ×3 (02:08→18:02)
[2019-04-06] MEDS: ARGATROBAN 250 MG in SODIUM CHLORIDE 0.9% 247.5 ML IV PRN ×2 (02:52→16:55)
[2019-04-06 05:56] LABS: MEAN CORPUSCULAR HEMOGLOBIN 32.7 pg (27.0-34.8); MEAN CORPUSCULAR HGB CONC 33.1 g/dL (32.4-35.8); MEAN CORPUSCULAR VOLUME 98.8 fL (80-100); RED BLOOD COUNT 3.02 x10^6/uL (3.82-5.3); RED CELL DISTRIBUTION WIDTH 16.1 % (9.6-15.2)
[2019-04-06 06:01] LABS: ANION GAP 6 mmol/L (5-15); CALCIUM 7.8 mg/dL (8.5-10.1); CHLORIDE 105 mmol/L (98-107); CREATININE 0.61 mg/dL (0.55-1.02)
[2019-04-06 06:18] LABS: MD YES; MEAN PLATELET VOLUME 9.3 fL (7.4-10.4); PLATELET COUNT 47 x10^3/uL (130-400)
[2019-04-06 06:20] LABS: BASOS% (MANUAL) 1 % (0-1); EOS% (MANUAL) 2 % (1-7); LYMPH#(MANUAL) 0.49 x10^3/uL (1-3.4); LYMPHS% (MANUAL) 5 % (22-44); MONOS#(MANUAL) 0.88 x10^3/uL (0.3-2.7); MONOS% (MANUAL) 9 % (2-9)
[2019-04-06 06:22] LABS: BAND#(MANUAL) 0.49 x10^3/uL; BANDS%(MANUAL) 5 % (0-7)
[2019-04-06 06:23] LABS: ANISOCYTOSIS 1+; SEG#(MANUAL) 7.64 x10^3/uL (1.8-6.8); SEGS% (MANUAL) 78 % (42-75)
[2019-04-06 06:24] LABS: <PLATELET ESTIMATE> DECREASED; <PLT MORPHOLOGY> NORMAL PLT MORPH; POLYCHROMASIA 1+
[2019-04-06] MEDS: INSULIN LISPRO 100 UNITS/ML, PEN SQ-INSULIN SCH ×4 (07:18→21:03)
[2019-04-06 07:23] VITALS: BP 134/68
[2019-04-06] MEDS: TRELEGY INH SCH (07:59)
[2019-04-06] MEDS: MORPHINE SULFATE 4 MG/ML, 1ML IVPush PRN ×2 (09:01→23:37)
[2019-04-06 13:48] VITALS: BP 125/62
[2019-04-06 20:14] VITALS: BP 108/58
[2019-04-07] MEDS: CEFAZOLIN 2,000 MG in SODIUM CHLORIDE 0.9% 50 ML IV SCH ×3 (02:08→17:19)
[2019-04-07] MEDS: OXYcodone IR 5MG TABLET PO PRN ×5 (02:09→19:35)
[2019-04-07 02:27] VITALS: BP 96/57
[2019-04-07] MEDS: ARGATROBAN 250 MG in SODIUM CHLORIDE 0.9% 247.5 ML IV PRN ×2 (06:05→17:17)
[2019-04-07] MEDS: INSULIN LISPRO 100 UNITS/ML, PEN SQ-INSULIN SCH ×4 (07:00→21:00)
[2019-04-07 07:06] VITALS: BP 121/69
[2019-04-07 08:48] LABS: MEAN CORPUSCULAR HEMOGLOBIN 31.8 pg (27.0-34.8); MEAN CORPUSCULAR HGB CONC 32.4 g/dL (32.4-35.8); MEAN CORPUSCULAR VOLUME 97.9 fL (80-100); MEAN PLATELET VOLUME 9.4 fL (7.4-10.4); PLATELET COUNT 53 x10^3/uL (130-400); RED BLOOD COUNT 3.03 x10^6/uL (3.82-5.3); RED CELL DISTRIBUTION WIDTH 15.8 % (9.6-15.2)
[2019-04-07 08:49] LABS: MD YES
[2019-04-07 08:52] LABS: BAND#(MANUAL) 1.37 x10^3/uL; BANDS%(MANUAL) 15 % (0-7); EOS#(MANUAL) 0.27 x10^3/uL (0.0-0.4); EOS% (MANUAL) 3 % (1-7); LYMPH#(MANUAL) 0.73 x10^3/uL (1-3.4); LYMPHS% (MANUAL) 8 % (22-44); MONOS#(MANUAL) 0.55 x10^3/uL (0.3-2.7); MONOS% (MANUAL) 6 % (2-9); SEG#(MANUAL) 6.19 x10^3/uL (1.8-6.8); SEGS% (MANUAL) 68 % (42-75)
[2019-04-07 08:55] LABS: <PLATELET ESTIMATE> DECREASED; <PLT MORPHOLOGY> NORMAL PLT MORPH; ANISOCYTOSIS 1+; POLYCHROMASIA 1+
[2019-04-07] MEDS: TRELEGY INH SCH (09:00)
[2019-04-07] MEDS ORDERED: hydrOXyzine 10MG TABLET PO PRN (09:30)
[2019-04-07] MEDS: MORPHINE SULFATE 4 MG/ML, 1ML IVPush PRN (09:53)
[2019-04-07] MEDS: BISACODYL 10 MG SUPP PR PRN (10:54)
[2019-04-07 13:31] VITALS: BP 105/62
[2019-04-07 19:24] VITALS: BP 100/56
[2019-04-08 00:59] VITALS: BP 109/70
[2019-04-08] MEDS: OXYcodone IR 5MG TABLET PO PRN ×5 (01:48→23:00)
[2019-04-08] MEDS: CEFAZOLIN 2,000 MG in SODIUM CHLORIDE 0.9% 50 ML IV SCH ×3 (01:48→17:57)
[2019-04-08 06:27] LABS: MEAN CORPUSCULAR HEMOGLOBIN 32.7 pg (27.0-34.8); MEAN CORPUSCULAR HGB CONC 32.9 g/dL (32.4-35.8); MEAN CORPUSCULAR VOLUME 99.2 fL (80-100); MEAN PLATELET VOLUME 9.6 fL (7.4-10.4); PLATELET COUNT 70 x10^3/uL (130-400); RED BLOOD COUNT 2.77 x10^6/uL (3.82-5.3); RED CELL DISTRIBUTION WIDTH 15.5 % (9.6-15.2)
[2019-04-08 06:33] LABS: CHLORIDE 105 mmol/L (98-107)
[2019-04-08 06:37] LABS: ALANINE AMINOTRANSFERASE 17 U/L (12-78); ALBUMIN 1.6 g/dL (3.4-5.0); ALKALINE PHOSPHATASE 80 U/L (45-117); ANION GAP 5 mmol/L (5-15); BILIRUBIN,TOTAL 0.7 mg/dL (0.2-1.0); CALCIUM 7.9 mg/dL (8.5-10.1); CREATININE 0.61 mg/dL (0.55-1.02); TOTAL PROTEIN 5.3 g/dL (6.4-8.2)
[2019-04-08 06:50] LABS: MD YES
[2019-04-08 06:53] LABS: BAND#(MANUAL) 0.58 x10^3/uL; BANDS%(MANUAL) 7 % (0-7); EOS#(MANUAL) 0.25 x10^3/uL (0.0-0.4); EOS% (MANUAL) 3 % (1-7); LYMPHS% (MANUAL) 6 % (22-44); METAMYELOCYTES# (MANUAL) 0.08 x10^3/uL (0-0); METAMYELOCYTES% (MANUAL) 1 % (0-1); MONOS#(MANUAL) 0.66 x10^3/uL (0.3-2.7); MONOS% (MANUAL) 8 % (2-9); SEG#(MANUAL) 6.23 x10^3/uL (1.8-6.8); SEGS% (MANUAL) 75 % (42-75)
[2019-04-08 06:54] LABS: <PLATELET ESTIMATE> DECREASED; <PLT MORPHOLOGY> NORMAL PLT MORPH; ANISOCYTOSIS 1+; POLYCHROMASIA 1+
[2019-04-08] MEDS: ARGATROBAN 250 MG in SODIUM CHLORIDE 0.9% 247.5 ML IV PRN ×2 (06:59→20:42)
[2019-04-08] MEDS: INSULIN LISPRO 100 UNITS/ML, PEN SQ-INSULIN SCH ×4 (07:00→20:44)
[2019-04-08 07:07] VITALS: BP 104/64
[2019-04-08] MEDS: MORPHINE SULFATE 4 MG/ML, 1ML IVPush PRN (08:20)
[2019-04-08] MEDS: TRELEGY INH SCH (11:36)
[2019-04-08 13:09] VITALS: BP 106/51
[2019-04-08 20:04] VITALS: BP 119/62
[2019-04-09 00:16] VITALS: BP 124/54
[2019-04-09] MEDS: MORPHINE SULFATE 4 MG/ML, 1ML IVPush PRN ×3 (00:18→18:11)
[2019-04-09] MEDS: CEFAZOLIN 2,000 MG in SODIUM CHLORIDE 0.9% 50 ML IV SCH ×3 (02:21→18:11)
[2019-04-09 03:11] VITALS: BP 124/67
[2019-04-09] MEDS: OXYcodone IR 5MG TABLET PO PRN ×3 (04:52→21:29)
[2019-04-09 05:10] LABS: MEAN CORPUSCULAR HEMOGLOBIN 32.4 pg (27.0-34.8); MEAN CORPUSCULAR HGB CONC 32.7 g/dL (32.4-35.8); MEAN CORPUSCULAR VOLUME 98.9 fL (80-100); MEAN PLATELET VOLUME 9.6 fL (7.4-10.4); PLATELET COUNT 98 x10^3/uL (130-400); RED BLOOD COUNT 2.79 x10^6/uL (3.82-5.3); RED CELL DISTRIBUTION WIDTH 15.6 % (9.6-15.2)
[2019-04-09 05:13] LABS: ALBUMIN 1.7 g/dL (3.4-5.0); ANION GAP 6 mmol/L (5-15); CALCIUM 8.2 mg/dL (8.5-10.1); CHLORIDE 105 mmol/L (98-107)
[2019-04-09 05:18] LABS: ALANINE AMINOTRANSFERASE 13 U/L (12-78); ALKALINE PHOSPHATASE 93 U/L (45-117); BILIRUBIN,TOTAL 0.7 mg/dL (0.2-1.0); TOTAL PROTEIN 5.4 g/dL (6.4-8.2)
[2019-04-09 06:03] LABS: BASOPHILS # (AUTO) 0.02 x10^3/uL (0-0.1); BASOPHILS % (AUTO) 0 % (0-1); EOSINOPHILS # (AUTO) 0.27 x10^3/uL (0-0.4); EOSINOPHILS % (AUTO) 3 % (1-7); LYMPHOCYTES # (AUTO) 0.93 x10^3/uL (1-3.4); LYMPHOCYTES % (AUTO) 12 % (22-44); MD SCAN; MONOCYTES # (AUTO) 0.66 x10^3/uL (0.2-0.8); MONOCYTES % (AUTO) 8 % (2-9); NEUTROPHILS # (AUTO) 6.13 x10^3/uL (1.8-6.8); NEUTROPHILS % (AUTO) 77 % (42-75)
[2019-04-09] MEDS: INSULIN LISPRO 100 UNITS/ML, PEN SQ-INSULIN SCH ×4 (07:00→20:47)
[2019-04-09 07:26] VITALS: BP 103/63
[2019-04-09] MEDS: TRELEGY INH SCH (09:00)
[2019-04-09 13:09] VITALS: BP 111/71
[2019-04-09] MEDS: ARGATROBAN 250 MG in SODIUM CHLORIDE 0.9% 247.5 ML IV PRN (14:46)
[2019-04-09 21:10] VITALS: BP 115/62
[2019-04-10] MEDS: CEFAZOLIN 2,000 MG in SODIUM CHLORIDE 0.9% 50 ML IV SCH ×3 (01:37→18:26)
[2019-04-10] MEDS: OXYcodone IR 5MG TABLET PO PRN ×3 (02:41→21:03)
[2019-04-10] MEDS: ARGATROBAN 250 MG in SODIUM CHLORIDE 0.9% 247.5 ML IV PRN ×2 (03:02→17:17)
[2019-04-10 05:43] LABS: BASOPHILS # (AUTO) 0.02 x10^3/uL (0-0.1); BASOPHILS % (AUTO) 0 % (0-1); EOSINOPHILS % (AUTO) 4 % (1-7); LYMPHOCYTES # (AUTO) 0.69 x10^3/uL (1-3.4); LYMPHOCYTES % (AUTO) 9 % (22-44); MD NO; MEAN CORPUSCULAR HEMOGLOBIN 32.1 pg (27.0-34.8); MEAN CORPUSCULAR HGB CONC 32.4 g/dL (32.4-35.8); MEAN PLATELET VOLUME 9.4 fL (7.4-10.4); MONOCYTES # (AUTO) 0.57 x10^3/uL (0.2-0.8); MONOCYTES % (AUTO) 8 % (2-9); NEUTROPHILS # (AUTO) 6.04 x10^3/uL (1.8-6.8); NEUTROPHILS % (AUTO) 79 % (42-75); PLATELET COUNT 132 x10^3/uL (130-400); RED BLOOD COUNT 2.93 x10^6/uL (3.82-5.3); RED CELL DISTRIBUTION WIDTH 15.5 % (9.6-15.2)
[2019-04-10 05:46] LABS: CHLORIDE 105 mmol/L (98-107)
[2019-04-10 05:54] LABS: ALANINE AMINOTRANSFERASE 14 U/L (12-78); ALBUMIN 1.7 g/dL (3.4-5.0); ALKALINE PHOSPHATASE 105 U/L (45-117); ANION GAP 7 mmol/L (5-15); BILIRUBIN,TOTAL 0.7 mg/dL (0.2-1.0); CALCIUM 8.3 mg/dL (8.5-10.1); CREATININE 0.58 mg/dL (0.55-1.02); TOTAL PROTEIN 5.7 g/dL (6.4-8.2)
[2019-04-10] MEDS: INSULIN LISPRO 100 UNITS/ML, PEN SQ-INSULIN SCH ×4 (07:32→21:29)
[2019-04-10 07:50] VITALS: BP 136/91
[2019-04-10] MEDS: TRELEGY INH SCH (09:00)
[2019-04-10 13:24] VITALS: BP 128/72
[2019-04-10 20:53] VITALS: BP 107/66
[2019-04-11] MEDS: MORPHINE SULFATE 4 MG/ML, 1ML IVPush PRN ×2 (00:12→09:05)
[2019-04-11] MEDS: CEFAZOLIN 2,000 MG in SODIUM CHLORIDE 0.9% 50 ML IV SCH ×3 (01:36→18:17)
[2019-04-11 04:00] VITALS: BP 132/76
[2019-04-11] MEDS: OXYcodone IR 5MG TABLET PO PRN ×4 (05:43→20:59)
[2019-04-11 06:12] LABS: CHLORIDE 108 mmol/L (98-107)
[2019-04-11 06:18] LABS: ANION GAP 6 mmol/L (5-15); CALCIUM 8.3 mg/dL (8.5-10.1); CREATININE 0.54 mg/dL (0.55-1.02)
[2019-04-11 06:19] LABS: BASOPHILS # (AUTO) 0.04 x10^3/uL (0-0.1); BASOPHILS % (AUTO) 0 % (0-1); EOSINOPHILS # (AUTO) 0.31 x10^3/uL (0-0.4); EOSINOPHILS % (AUTO) 4 % (1-7); LYMPHOCYTES # (AUTO) 1.15 x10^3/uL (1-3.4); LYMPHOCYTES % (AUTO) 14 % (22-44); MD NO; MEAN CORPUSCULAR HEMOGLOBIN 32.1 pg (27.0-34.8); MEAN CORPUSCULAR HGB CONC 32.1 g/dL (32.4-35.8); MEAN CORPUSCULAR VOLUME 99.9 fL (80-100); MEAN PLATELET VOLUME 9.8 fL (7.4-10.4); MONOCYTES # (AUTO) 0.62 x10^3/uL (0.2-0.8); MONOCYTES % (AUTO) 8 % (2-9); NEUTROPHILS # (AUTO) 5.94 x10^3/uL (1.8-6.8); NEUTROPHILS % (AUTO) 74 % (42-75); PLATELET COUNT 160 x10^3/uL (130-400); RED BLOOD COUNT 2.84 x10^6/uL (3.82-5.3); RED CELL DISTRIBUTION WIDTH 15.8 % (9.6-15.2)
[2019-04-11] MEDS: INSULIN LISPRO 100 UNITS/ML, PEN SQ-INSULIN SCH ×4 (07:20→20:39)
[2019-04-11 07:49] VITALS: BP 106/54
[2019-04-11] MEDS: TRELEGY INH SCH (09:04)
[2019-04-11 12:46] VITALS: BP 123/74
[2019-04-11] MEDS ORDERED: PHARMACY INSTRUCTION MC SCH (14:00)
[2019-04-11 17:31] LABS: INTERNATIONAL NORMALIZED RATIO 1.76 (0.93-1.1); PROTHROMBIN TIME 18.1 Seconds (9.6-11.5)
[2019-04-11] MEDS ORDERED: WARFARIN 5 MG TABLET PO-COUM ONE (18:00)
[2019-04-11] MEDS: ARGATROBAN 250 MG in SODIUM CHLORIDE 0.9% 247.5 ML IV PRN (18:15)
[2019-04-11 20:06] VITALS: BP 127/61
[2019-04-12 00:34] VITALS: BP 125/53
[2019-04-12] MEDS: OXYcodone IR 5MG TABLET PO PRN ×6 (00:57→23:34)
[2019-04-12] MEDS: CEFAZOLIN 2,000 MG in SODIUM CHLORIDE 0.9% 50 ML IV SCH ×3 (02:06→18:16)
[2019-04-12 06:26] LABS: INTERNATIONAL NORMALIZED RATIO 4.91 (0.93-1.1)
[2019-04-12 06:33] LABS: BASOPHILS # (AUTO) 0.04 x10^3/uL (0-0.1); BASOPHILS % (AUTO) 1 % (0-1); EOSINOPHILS % (AUTO) 3 % (1-7); LYMPHOCYTES # (AUTO) 0.78 x10^3/uL (1-3.4); LYMPHOCYTES % (AUTO) 13 % (22-44); MD NO; MEAN CORPUSCULAR HEMOGLOBIN 31.4 pg (27.0-34.8); MEAN CORPUSCULAR HGB CONC 32.2 g/dL (32.4-35.8); MEAN CORPUSCULAR VOLUME 97.3 fL (80-100); MEAN PLATELET VOLUME 9.3 fL (7.4-10.4); MONOCYTES # (AUTO) 0.47 x10^3/uL (0.2-0.8); MONOCYTES % (AUTO) 8 % (2-9); NEUTROPHILS % (AUTO) 76 % (42-75); PLATELET COUNT 172 x10^3/uL (130-400); RED BLOOD COUNT 3.05 x10^6/uL (3.82-5.3); RED CELL DISTRIBUTION WIDTH 15.3 % (9.6-15.2)
[2019-04-12 06:43] LABS: ALBUMIN 1.8 g/dL (3.4-5.0); ANION GAP 6 mmol/L (5-15); CALCIUM 8.6 mg/dL (8.5-10.1); CHLORIDE 107 mmol/L (98-107)
[2019-04-12 06:44] VITALS: BP 128/64
[2019-04-12 06:46] LABS: ALANINE AMINOTRANSFERASE 9 U/L (12-78); ALKALINE PHOSPHATASE 108 U/L (45-117); BILIRUBIN,TOTAL 0.6 mg/dL (0.2-1.0); CREATININE 0.58 mg/dL (0.55-1.02); PROTHROMBIN TIME 48.5 Seconds (9.6-11.5)
[2019-04-12] MEDS: INSULIN LISPRO 100 UNITS/ML, PEN SQ-INSULIN SCH ×4 (07:00→20:09)
[2019-04-12] MEDS: TRELEGY INH SCH (09:00)
[2019-04-12 12:07] LABS: INTERNATIONAL NORMALIZED RATIO 1.9 (0.93-1.1); PROTHROMBIN TIME 19.5 Seconds (9.6-11.5)
[2019-04-12] MEDS: ARGATROBAN 250 MG in SODIUM CHLORIDE 0.9% 247.5 ML IV PRN (12:59)
[2019-04-12 13:28] VITALS: BP 120/67
[2019-04-12] MEDS ORDERED: WARFARIN 5 MG TABLET PO-COUM SCH (18:00)
[2019-04-12 18:46] VITALS: BP 110/45
[2019-04-13 01:00] VITALS: BP 118/64
[2019-04-13] MEDS: CEFAZOLIN 2,000 MG in SODIUM CHLORIDE 0.9% 50 ML IV SCH ×2 (02:26→10:39)
[2019-04-13] MEDS: ARGATROBAN 250 MG in SODIUM CHLORIDE 0.9% 247.5 ML IV PRN (02:43)
[2019-04-13] MEDS: OXYcodone IR 5MG TABLET PO PRN ×4 (03:37→21:04)
[2019-04-13 05:49] LABS: PROTHROMBIN TIME 67.3 Seconds (9.6-11.5)
[2019-04-13 05:50] LABS: INTERNATIONAL NORMALIZED RATIO 6.9 (0.93-1.1)
[2019-04-13] MEDS: INSULIN LISPRO 100 UNITS/ML, PEN SQ-INSULIN SCH ×4 (07:00→21:00)
[2019-04-13 07:05] VITALS: BP 112/57
[2019-04-13] MEDS: TRELEGY INH SCH (08:53)
[2019-04-13] MEDS: MORPHINE SULFATE 4 MG/ML, 1ML IVPush PRN ×2 (09:29→10:38)
[2019-04-13 10:50] LABS: INTERNATIONAL NORMALIZED RATIO 2.6 (0.93-1.1); PROTHROMBIN TIME 26.3 Seconds (9.6-11.5)
[2019-04-13 12:18] VITALS: BP 127/69
[2019-04-13] MEDS: DOCUSATE 100 MG CAPSULE PO PRN (16:23)
[2019-04-13] MEDS ORDERED: WARFARIN 2 MG TABLET PO-COUM SCH (18:00)
[2019-04-13 20:39] VITALS: BP 128/64
[2019-04-14 00:30] VITALS: BP 129/86
[2019-04-14] MEDS: OXYcodone IR 5MG TABLET PO PRN ×5 (01:25→22:41)
[2019-04-14 03:34] LABS: INTERNATIONAL NORMALIZED RATIO 2.22 (0.93-1.1); PROTHROMBIN TIME 22.6 Seconds (9.6-11.5)
[2019-04-14] MEDS: INSULIN LISPRO 100 UNITS/ML, PEN SQ-INSULIN SCH ×4 (07:00→20:57)
[2019-04-14 07:54] VITALS: BP 113/69
[2019-04-14] MEDS ORDERED: WARF4TAB65 PO (09:14)
[2019-04-14] MEDS ORDERED: OXYC5TAB3 PO (09:14)
[2019-04-14] MEDS ORDERED: POLY17PO5 PO (09:14)
[2019-04-14] MEDS ORDERED: ONDA4TAB13 PO (09:14)
[2019-04-14] MEDS ORDERED: HYDR10TA4 PO (09:14)
[2019-04-14] MEDS ORDERED: ACET325T26 PO (09:14)
[2019-04-14] MEDS: TRELEGY INH SCH (09:45)
[2019-04-14 13:26] VITALS: BP 125/76
[2019-04-14] MEDS ORDERED: WARFARIN 2.5 MG TABLET PO-COUM SCH (18:00)
[2019-04-14 20:59] VITALS: BP 125/76
[2019-04-15 03:12] VITALS: BP 102/61
[2019-04-15] MEDS: OXYcodone IR 5MG TABLET PO PRN ×4 (03:31→22:01)
[2019-04-15 04:21] LABS: INTERNATIONAL NORMALIZED RATIO 1.85 (0.93-1.1)
[2019-04-15 08:00] VITALS: BP 130/72
[2019-04-15] MEDS: INSULIN LISPRO 100 UNITS/ML, PEN SQ-INSULIN SCH ×4 (10:22→21:00)
[2019-04-15] MEDS: TRELEGY INH SCH (10:22)
[2019-04-15 12:06] VITALS: BP 120/63
[2019-04-15] MEDS: ARGATROBAN 250 MG in SODIUM CHLORIDE 0.9% 247.5 ML IV PRN ×2 (12:17→12:56)
[2019-04-15 16:06] LABS: PROTHROMBIN TIME 58.8 Seconds (9.6-11.5)
[2019-04-15 17:25] LABS: INTERNATIONAL NORMALIZED RATIO 6.31 (0.93-1.1); PROTHROMBIN TIME 61.7 Seconds (9.6-11.5)
[2019-04-15] MEDS ORDERED: WARFARIN 5 MG TABLET PO-COUM SCH (18:00)
[2019-04-15 19:48] VITALS: BP 122/66
[2019-04-15 22:34] LABS: INTERNATIONAL NORMALIZED RATIO 2.04 (0.93-1.1); PROTHROMBIN TIME 20.8 Seconds (9.6-11.5)
[2019-04-16 00:05] VITALS: BP 132/66
[2019-04-16] MEDS: OXYcodone IR 5MG TABLET PO PRN ×4 (03:24→19:56)
[2019-04-16 05:57] LABS: INTERNATIONAL NORMALIZED RATIO 1.9 (0.93-1.1); PROTHROMBIN TIME 19.5 Seconds (9.6-11.5)
[2019-04-16] MEDS ORDERED: ARGATROBAN 250 MG in SODIUM CHLORIDE 0.9% 247.5 ML IV PRN (06:30)
[2019-04-16 06:39] VITALS: BP 118/72
[2019-04-16] MEDS: INSULIN LISPRO 100 UNITS/ML, PEN SQ-INSULIN SCH ×4 (08:00→21:00)
[2019-04-16] MEDS: TRELEGY INH SCH (09:00)
[2019-04-16 12:12] LABS: INTERNATIONAL NORMALIZED RATIO 8.37 (0.93-1.1)
[2019-04-16 13:07] VITALS: BP 126/75
[2019-04-16] MEDS: MORPHINE SULFATE 4 MG/ML, 1ML IVPush PRN (13:52)
[2019-04-16 17:05] LABS: INTERNATIONAL NORMALIZED RATIO 2.33 (0.93-1.1); PROTHROMBIN TIME 23.7 Seconds (9.6-11.5)
[2019-04-16] MEDS ORDERED: WARFARIN 5 MG TABLET PO-COUM ONE (18:00)
[2019-04-16 18:37] VITALS: BP 122/71
[2019-04-17 00:32] VITALS: BP 122/63
[2019-04-17] MEDS: OXYcodone IR 5MG TABLET PO PRN ×5 (00:33→20:37)
[2019-04-17 07:02] VITALS: BP 121/65
[2019-04-17 08:28] LABS: INTERNATIONAL NORMALIZED RATIO 2.18 (0.93-1.1); PROTHROMBIN TIME 22.2 Seconds (9.6-11.5)
[2019-04-17] MEDS: TRELEGY INH SCH (09:00)
[2019-04-17] MEDS: INSULIN LISPRO 100 UNITS/ML, PEN SQ-INSULIN SCH ×4 (10:44→20:36)
[2019-04-17 12:28] VITALS: BP 122/69
[2019-04-17] MEDS ORDERED: WARFARIN 7.5 MG TABLET PO-COUM ONE (18:00)
[2019-04-17 18:53] VITALS: BP 137/76
[2019-04-18] MEDS: OXYcodone IR 5MG TABLET PO PRN ×6 (00:47→21:56)
[2019-04-18 01:05] VITALS: BP 118/64
[2019-04-18 04:30] LABS: INTERNATIONAL NORMALIZED RATIO 2.78 (0.93-1.1); PROTHROMBIN TIME 28.1 Seconds (9.6-11.5)
[2019-04-18 06:40] VITALS: BP 116/68
[2019-04-18] MEDS: INSULIN LISPRO 100 UNITS/ML, PEN SQ-INSULIN SCH ×4 (07:00→21:00)
[2019-04-18] MEDS: TRELEGY INH SCH (08:59)
[2019-04-18] MEDS: MORPHINE SULFATE 4 MG/ML, 1ML IVPush PRN (09:01)
[2019-04-18 12:36] VITALS: BP 117/58
[2019-04-18] MEDS ORDERED: WARFARIN 3 MG TABLET PO-COUM ONE (18:00)
[2019-04-18 19:10] VITALS: BP 127/67
[2019-04-19 00:21] VITALS: BP 135/71
[2019-04-19] MEDS: OXYcodone IR 5MG TABLET PO PRN ×5 (02:11→20:27)
[2019-04-19] MEDS: DOCUSATE 100 MG CAPSULE PO PRN (05:50)
[2019-04-19] MEDS: BISACODYL 10 MG SUPP PR PRN (05:50)
[2019-04-19 06:25] LABS: BASOPHILS # (AUTO) 0.02 x10^3/uL (0-0.1); BASOPHILS % (AUTO) 0 % (0-1); EOSINOPHILS # (AUTO) 0.26 x10^3/uL (0-0.4); EOSINOPHILS % (AUTO) 5 % (1-7); LYMPHOCYTES # (AUTO) 0.79 x10^3/uL (1-3.4); LYMPHOCYTES % (AUTO) 13 % (22-44); MD NO; MEAN CORPUSCULAR HEMOGLOBIN 31.7 pg (27.0-34.8); MEAN CORPUSCULAR HGB CONC 32.4 g/dL (32.4-35.8); MEAN CORPUSCULAR VOLUME 97.7 fL (80-100); MEAN PLATELET VOLUME 8.6 fL (7.4-10.4); MONOCYTES # (AUTO) 0.56 x10^3/uL (0.2-0.8); MONOCYTES % (AUTO) 10 % (2-9); NEUTROPHILS # (AUTO) 4.25 x10^3/uL (1.8-6.8); NEUTROPHILS % (AUTO) 72 % (42-75); PLATELET COUNT 209 x10^3/uL (130-400); RED BLOOD COUNT 3.04 x10^6/uL (3.82-5.3); RED CELL DISTRIBUTION WIDTH 15.7 % (9.6-15.2)
[2019-04-19 06:28] LABS: INTERNATIONAL NORMALIZED RATIO 3.63 (0.93-1.1); PROTHROMBIN TIME 36.3 Seconds (9.6-11.5)
[2019-04-19 06:37] LABS: ANION GAP 6 mmol/L (5-15); CALCIUM 8.7 mg/dL (8.5-10.1); CHLORIDE 104 mmol/L (98-107)
[2019-04-19 06:39] LABS: CREATININE 0.58 mg/dL (0.55-1.02)
[2019-04-19] MEDS: INSULIN LISPRO 100 UNITS/ML, PEN SQ-INSULIN SCH ×4 (07:00→20:29)
[2019-04-19] MEDS ORDERED: HOLD COUMADIN MC PRN (08:00)
[2019-04-19 08:12] VITALS: BP 117/69
[2019-04-19] MEDS: TRELEGY INH SCH (08:47)
[2019-04-19] MEDS: MORPHINE SULFATE 4 MG/ML, 1ML IVPush PRN (11:36)
[2019-04-19 12:55] VITALS: BP 121/61
[2019-04-19 19:10] VITALS: BP 116/62
[2019-04-19 22:32] LABS: CLOSTRIDIUM DIFFICILE TOXIN NEGATIVE (Negative)
[2019-04-19 22:35] LABS: CLOSTRIDIUM DIFFICILE ANTIGEN POSITIVE
[2019-04-19] MEDS ORDERED: PHYTONADIONE 5 MG TABLET PO ONE (23:00)
[2019-04-20] MEDS: OXYcodone IR 5MG TABLET PO PRN ×6 (00:22→23:22)
[2019-04-20 00:41] VITALS: BP 120/61
[2019-04-20 06:13] LABS: INTERNATIONAL NORMALIZED RATIO 3.05 (0.93-1.1); PROTHROMBIN TIME 30.7 Seconds (9.6-11.5)
[2019-04-20 07:21] VITALS: BP 104/50
[2019-04-20] MEDS: INSULIN LISPRO 100 UNITS/ML, PEN SQ-INSULIN SCH ×4 (07:51→20:14)
[2019-04-20] MEDS: TRELEGY INH SCH (09:00)
[2019-04-20] MEDS: MORPHINE SULFATE 4 MG/ML, 1ML IVPush PRN ×2 (09:36→10:05)
[2019-04-20] MEDS ORDERED: morphine SULFATE/PF 0.5 MG/ML, 10ML IV PRN (10:00)
[2019-04-20 14:21] VITALS: BP 98/57
[2019-04-20] MEDS ORDERED: PHYTONADIONE 5 MG TABLET PO ONE (16:30)
[2019-04-20 18:54] VITALS: BP 117/51
[2019-04-21 02:11] VITALS: BP 109/54
[2019-04-21] MEDS: OXYcodone IR 5MG TABLET PO PRN ×6 (04:31→23:59)
[2019-04-21 04:56] LABS: BASOPHILS # (AUTO) 0.04 x10^3/uL (0-0.1); BASOPHILS % (AUTO) 1 % (0-1); EOSINOPHILS # (AUTO) 0.35 x10^3/uL (0-0.4); EOSINOPHILS % (AUTO) 6 % (1-7); LYMPHOCYTES # (AUTO) 0.98 x10^3/uL (1-3.4); LYMPHOCYTES % (AUTO) 18 % (22-44); MD NO; MEAN CORPUSCULAR HEMOGLOBIN 30.9 pg (27.0-34.8); MEAN CORPUSCULAR HGB CONC 31.7 g/dL (32.4-35.8); MEAN CORPUSCULAR VOLUME 97.5 fL (80-100); MEAN PLATELET VOLUME 8.5 fL (7.4-10.4); MONOCYTES # (AUTO) 0.55 x10^3/uL (0.2-0.8); MONOCYTES % (AUTO) 10 % (2-9); NEUTROPHILS # (AUTO) 3.51 x10^3/uL (1.8-6.8); NEUTROPHILS % (AUTO) 65 % (42-75); PLATELET COUNT 226 x10^3/uL (130-400)
[2019-04-21 04:58] LABS: INTERNATIONAL NORMALIZED RATIO 1.32 (0.93-1.1); PROTHROMBIN TIME 13.7 Seconds (9.6-11.5)
[2019-04-21 05:01] LABS: ANION GAP 2 mmol/L (5-15); CALCIUM 8.9 mg/dL (8.5-10.1); CHLORIDE 106 mmol/L (98-107); CREATININE 0.59 mg/dL (0.55-1.02)
[2019-04-21 07:43] VITALS: BP 107/55
[2019-04-21] MEDS: INSULIN LISPRO 100 UNITS/ML, PEN SQ-INSULIN SCH ×4 (07:49→20:46)
[2019-04-21] MEDS: DOCUSATE 100 MG CAPSULE PO PRN (08:52)
[2019-04-21] MEDS: TRELEGY INH SCH (09:00)
[2019-04-21] MEDS: ARGATROBAN 250 MG in SODIUM CHLORIDE 0.9% 247.5 ML IV PRN ×2 (11:18→23:59)
[2019-04-21 12:40] VITALS: BP 104/72
[2019-04-21] MEDS ORDERED: IPRATROPIUM 0.5 MG/2.5 ML INHA HHN SCH (16:00)
[2019-04-21] MEDS: TEMPLATE NON-FORMULARY MED. (SPIRIVA 1 INH) INH SCH (16:30)
[2019-04-21 18:13] VITALS: BP 104/61
[2019-04-22 01:14] VITALS: BP 111/61
[2019-04-22] MEDS: OXYcodone IR 5MG TABLET PO PRN ×5 (04:45→23:52)
[2019-04-22 04:50] LABS: BASOPHILS # (AUTO) 0.03 x10^3/uL (0-0.1); BASOPHILS % (AUTO) 1 % (0-1); EOSINOPHILS # (AUTO) 0.33 x10^3/uL (0-0.4); EOSINOPHILS % (AUTO) 6 % (1-7); LYMPHOCYTES # (AUTO) 0.95 x10^3/uL (1-3.4); LYMPHOCYTES % (AUTO) 17 % (22-44); MD NO; MEAN CORPUSCULAR HEMOGLOBIN 30.6 pg (27.0-34.8); MEAN CORPUSCULAR HGB CONC 31.4 g/dL (32.4-35.8); MEAN CORPUSCULAR VOLUME 97.7 fL (80-100); MEAN PLATELET VOLUME 8.5 fL (7.4-10.4); MONOCYTES # (AUTO) 0.52 x10^3/uL (0.2-0.8); MONOCYTES % (AUTO) 10 % (2-9); NEUTROPHILS # (AUTO) 3.67 x10^3/uL (1.8-6.8); NEUTROPHILS % (AUTO) 67 % (42-75); PLATELET COUNT 244 x10^3/uL (130-400); RED BLOOD COUNT 3.28 x10^6/uL (3.82-5.3); RED CELL DISTRIBUTION WIDTH 16.1 % (9.6-15.2)
[2019-04-22 04:59] LABS: INTERNATIONAL NORMALIZED RATIO 3.91 (0.93-1.1)
[2019-04-22 05:00] LABS: ANION GAP 4 mmol/L (5-15); CALCIUM 8.8 mg/dL (8.5-10.1); CHLORIDE 107 mmol/L (98-107)
[2019-04-22 05:01] LABS: CREATININE 0.61 mg/dL (0.55-1.02)
[2019-04-22 07:05] VITALS: BP 121/66
[2019-04-22] MEDS: INSULIN LISPRO 100 UNITS/ML, PEN SQ-INSULIN SCH ×4 (07:28→20:11)
[2019-04-22] MEDS: TEMPLATE NON-FORMULARY MED. (SPIRIVA 1 INH) INH SCH (07:59)
[2019-04-22] MEDS ORDERED: CEFAZOLIN 1,000 MG ONE (10:58)
[2019-04-22] MEDS ORDERED: FENTANYL PF 100 MCG/2ML ONE ×2 (10:58→11:53)
[2019-04-22] MEDS ORDERED: ONDANSETRON 2MG/ML, 2ML ONE (10:58)
[2019-04-22] MEDS ORDERED: PROPOFOL 10 MG/ML, 20ML ONE (10:58)
[2019-04-22] MEDS ORDERED: DEXAMETHASONE 4 MG/ML, 1ML ONE (10:58)
[2019-04-22] MEDS ORDERED: KETOROLAC 30 MG/1 ML ONE (11:25)
[2019-04-22] MEDS ORDERED: ONDANSETRON 2MG/ML, 2ML IV PRN (11:30)
[2019-04-22] MEDS ORDERED: ACETAMINOPHEN 325 MG TABLET PO PRN (11:30)
[2019-04-22] MEDS ORDERED: HYDROmorphone 2 MG/ML, 1ML IVPush PRN (11:30)
[2019-04-22] MEDS ORDERED: PROMETHAZINE 25 MG/ML, 1ML IV PRN (11:30)
[2019-04-22] MEDS ORDERED: LABETALOL 5MG/ML, 20ML IV PRN (11:30)
[2019-04-22] MEDS ORDERED: OXYcodone 5 MG/5 ML ORAL.SOL UDC PO PRN (11:30)
[2019-04-22] MEDS ORDERED: hydrALAzine 20 MG/ML, 1ML IV PRN (11:30)
[2019-04-22] MEDS ORDERED: EPHEDRINE 50 MG/ML, 1ML IVPush PRN (11:30)
[2019-04-22] MEDS ORDERED: MEPERIDINE/PF 25MG/ML,1ML IVPush PRN (11:30)
[2019-04-22] MEDS: FENTANYL PF 100 MCG/2ML IV PRN ×2 (11:53→12:02)
[2019-04-22] MEDS ORDERED: OXYcodone 5 MG/5 ML ORAL.SOL UDC ONE (11:53)
[2019-04-22 13:35] VITALS: BP 114/63
[2019-04-22] MEDS: AMPICILLIN/SULBACTAM 3 GM in SODIUM CHLORIDE 0.9% 100 ML IV SCH ×2 (15:37→19:50)
[2019-04-22 19:40] VITALS: BP 110/61
[2019-04-22] MEDS: ARGATROBAN 250 MG in SODIUM CHLORIDE 0.9% 247.5 ML IV PRN (19:50)
[2019-04-23 01:05] VITALS: BP 104/57
[2019-04-23] MEDS: AMPICILLIN/SULBACTAM 3 GM in SODIUM CHLORIDE 0.9% 100 ML IV SCH ×4 (02:10→19:43)
[2019-04-23] MEDS: MORPHINE SULFATE 4 MG/ML, 1ML IVPush PRN ×3 (02:16→11:04)
[2019-04-23] MEDS: OXYcodone IR 5MG TABLET PO PRN ×5 (03:48→23:54)
[2019-04-23 05:15] LABS: INTERNATIONAL NORMALIZED RATIO 3.74 (0.93-1.1); PROTHROMBIN TIME 37.3 Seconds (9.6-11.5)
[2019-04-23 06:43] VITALS: BP 110/64
[2019-04-23] MEDS: INSULIN LISPRO 100 UNITS/ML, PEN SQ-INSULIN SCH ×4 (07:56→19:37)
[2019-04-23] MEDS: TEMPLATE NON-FORMULARY MED. (SPIRIVA 1 INH) INH SCH (09:00)
[2019-04-23] MEDS: ARGATROBAN 250 MG in SODIUM CHLORIDE 0.9% 247.5 ML IV PRN (11:04)
[2019-04-23] MEDS ORDERED: MORPHINE SULFATE 4 MG/ML, 1ML IVPush PRN (11:30)
[2019-04-23 13:08] VITALS: BP 113/64
[2019-04-23 19:08] VITALS: BP 115/59
[2019-04-24] MEDS: ARGATROBAN 250 MG in SODIUM CHLORIDE 0.9% 247.5 ML IV PRN ×2 (00:12→20:00)
[2019-04-24 01:20] VITALS: BP 121/64
[2019-04-24] MEDS: AMPICILLIN/SULBACTAM 3 GM in SODIUM CHLORIDE 0.9% 100 ML IV SCH ×4 (01:54→19:00)
[2019-04-24] MEDS: OXYcodone IR 5MG TABLET PO PRN ×2 (05:32→12:29)
[2019-04-24 06:05] LABS: ANION GAP 7 mmol/L (5-15); CALCIUM 8.3 mg/dL (8.5-10.1); CHLORIDE 106 mmol/L (98-107); CREATININE 0.68 mg/dL (0.55-1.02)
[2019-04-24 06:07] LABS: BASOPHILS # (AUTO) 0.03 x10^3/uL (0-0.1); BASOPHILS % (AUTO) 0 % (0-1); EOSINOPHILS # (AUTO) 0.21 x10^3/uL (0-0.4); EOSINOPHILS % (AUTO) 3 % (1-7); LYMPHOCYTES # (AUTO) 1.41 x10^3/uL (1-3.4); LYMPHOCYTES % (AUTO) 17 % (22-44); MD NO; MEAN CORPUSCULAR HEMOGLOBIN 31.6 pg (27.0-34.8); MEAN CORPUSCULAR HGB CONC 32.1 g/dL (32.4-35.8); MEAN CORPUSCULAR VOLUME 98.2 fL (80-100); MEAN PLATELET VOLUME 8.5 fL (7.4-10.4); MONOCYTES # (AUTO) 0.61 x10^3/uL (0.2-0.8); MONOCYTES % (AUTO) 7 % (2-9); NEUTROPHILS # (AUTO) 5.95 x10^3/uL (1.8-6.8); NEUTROPHILS % (AUTO) 72 % (42-75); PLATELET COUNT 253 x10^3/uL (130-400); RED BLOOD COUNT 3.03 x10^6/uL (3.82-5.3); RED CELL DISTRIBUTION WIDTH 16.6 % (9.6-15.2)
[2019-04-24 06:18] LABS: PROTHROMBIN TIME 33.4 Seconds (9.6-11.5)
[2019-04-24 06:19] LABS: INTERNATIONAL NORMALIZED RATIO 3.33 (0.93-1.1)
[2019-04-24 06:54] VITALS: BP 134/63
[2019-04-24] MEDS: INSULIN LISPRO 100 UNITS/ML, PEN SQ-INSULIN SCH ×4 (07:00→19:50)
[2019-04-24] MEDS: MORPHINE SULFATE 4 MG/ML, 1ML IVPush PRN ×3 (08:44→21:55)
[2019-04-24] MEDS ORDERED: ACETAMINOPHEN 325 MG TABLET PO PRN (11:00)
[2019-04-24] MEDS ORDERED: HYDROmorphone 2 MG/ML, 1ML IVPush PRN (11:00)
[2019-04-24] MEDS ORDERED: ONDANSETRON 2MG/ML, 2ML IV PRN (11:00)
[2019-04-24] MEDS ORDERED: EPHEDRINE 50 MG/ML, 1ML IVPush PRN (11:00)
[2019-04-24] MEDS ORDERED: LABETALOL 5MG/ML, 20ML IV PRN (11:00)
[2019-04-24] MEDS ORDERED: MEPERIDINE/PF 25MG/ML,1ML IVPush PRN (11:00)
[2019-04-24] MEDS ORDERED: hydrALAzine 20 MG/ML, 1ML IV PRN (11:00)
[2019-04-24] MEDS ORDERED: PROMETHAZINE 25 MG/ML, 1ML IV PRN (11:00)
[2019-04-24] MEDS ORDERED: OXYcodone 5 MG/5 ML ORAL.SOL UDC PO PRN (11:00)
[2019-04-24] MEDS: TEMPLATE NON-FORMULARY MED. (SPIRIVA 1 INH) INH SCH (11:57)
[2019-04-24 12:25] VITALS: BP 118/62
[2019-04-24] MEDS ORDERED: BUPIVACAINE/PF 0.5% ONE (13:53)
[2019-04-24] MEDS ORDERED: SODIUM CHLORIDE 0.9% PF 10ML ONE (13:53)
[2019-04-24] MEDS ORDERED: PROPOFOL 10 MG/ML, 20ML ONE (13:53)
[2019-04-24] MEDS ORDERED: LIDOCAINE-MPF 2% ,5ML ONE ×2 (13:53)
[2019-04-24] MEDS ORDERED: CEFAZOLIN 1,000 MG ONE (13:53)
[2019-04-24] MEDS ORDERED: FENTANYL PF 100 MCG/2ML ONE ×2 (14:08→16:47)
[2019-04-24] MEDS ORDERED: BUPIVACAINE/PF 0.25% ONE (14:14)
[2019-04-24] MEDS ORDERED: ACETAMINOPHEN 500 MG TABLET PO ONE (15:00)
[2019-04-24] MEDS ORDERED: OXYcodone 5 MG/5 ML ORAL.SOL UDC ONE (16:47)
[2019-04-24] MEDS: FENTANYL PF 100 MCG/2ML IV PRN ×2 (16:53→17:02)
[2019-04-24] MEDS ORDERED: ARGATROBAN 250 MG in SODIUM CHLORIDE 0.9% 247.5 ML IV PRN (18:15)
[2019-04-24] MEDS ORDERED: LABETALOL 5 MG/ML SYR. (IV ONLY) IV PRN (18:30)
[2019-04-24] MEDS ORDERED: CEFAZOLIN 2,000 MG in SODIUM CHLORIDE 0.9% 50 ML IV SCH (18:30)
[2019-04-24 18:33] VITALS: BP 143/74
[2019-04-24] MEDS ORDERED: WARFARIN 5 MG TABLET PO-COUM ONE (20:00)
[2019-04-25] MEDS: AMPICILLIN/SULBACTAM 3 GM in SODIUM CHLORIDE 0.9% 100 ML IV SCH ×4 (01:37→21:03)
[2019-04-25] MEDS: MORPHINE SULFATE 4 MG/ML, 1ML IVPush PRN ×6 (02:08→21:01)
[2019-04-25 02:18] VITALS: BP 133/65
[2019-04-25 05:40] LABS: BASOPHILS % (AUTO) 0 % (0-1); EOSINOPHILS # (AUTO) 0.16 x10^3/uL (0-0.4); EOSINOPHILS % (AUTO) 2 % (1-7); LYMPHOCYTES # (AUTO) 0.47 x10^3/uL (1-3.4); LYMPHOCYTES % (AUTO) 5 % (22-44); MD NO; MEAN CORPUSCULAR HGB CONC 31.6 g/dL (32.4-35.8); MEAN PLATELET VOLUME 8.9 fL (7.4-10.4); MONOCYTES # (AUTO) 0.58 x10^3/uL (0.2-0.8); MONOCYTES % (AUTO) 6 % (2-9); NEUTROPHILS # (AUTO) 8.51 x10^3/uL (1.8-6.8); NEUTROPHILS % (AUTO) 88 % (42-75); PLATELET COUNT 228 x10^3/uL (130-400); RED BLOOD COUNT 3.01 x10^6/uL (3.82-5.3); RED CELL DISTRIBUTION WIDTH 16.7 % (9.6-15.2)
[2019-04-25 05:48] LABS: INTERNATIONAL NORMALIZED RATIO 3.39 (0.93-1.1)
[2019-04-25 05:52] LABS: ANION GAP 7 mmol/L (5-15); CALCIUM 8.5 mg/dL (8.5-10.1); CHLORIDE 109 mmol/L (98-107); CREATININE 0.68 mg/dL (0.55-1.02)
[2019-04-25 07:01] VITALS: BP 121/59
[2019-04-25] MEDS: INSULIN LISPRO 100 UNITS/ML, PEN SQ-INSULIN SCH ×4 (08:14→21:00)
[2019-04-25] MEDS: TEMPLATE NON-FORMULARY MED. (SPIRIVA 1 INH) INH SCH (08:16)
[2019-04-25 12:22] VITALS: BP 146/76
[2019-04-25] MEDS: ARGATROBAN 250 MG in SODIUM CHLORIDE 0.9% 247.5 ML IV PRN (12:32)
[2019-04-25] MEDS: OXYcodone IR 5MG TABLET PO PRN ×2 (14:34→22:27)
[2019-04-25] MEDS ORDERED: WARFARIN 7.5 MG TABLET PO-COUM ONE (18:00)
[2019-04-25 20:01] VITALS: BP 152/65
[2019-04-26 01:04] VITALS: BP 155/65
[2019-04-26] MEDS: ARGATROBAN 250 MG in SODIUM CHLORIDE 0.9% 247.5 ML IV PRN ×2 (01:57→18:50)
[2019-04-26] MEDS: AMPICILLIN/SULBACTAM 3 GM in SODIUM CHLORIDE 0.9% 100 ML IV SCH ×4 (02:53→21:37)
[2019-04-26] MEDS: OXYcodone IR 5MG TABLET PO PRN ×3 (02:53→20:27)
[2019-04-26 05:24] LABS: INTERNATIONAL NORMALIZED RATIO 3.48 (0.93-1.1); PROTHROMBIN TIME 34.8 Seconds (9.6-11.5)
[2019-04-26] MEDS: INSULIN LISPRO 100 UNITS/ML, PEN SQ-INSULIN SCH ×5 (07:00→20:27)
[2019-04-26 07:16] VITALS: BP 164/74
[2019-04-26] MEDS: MORPHINE SULFATE 4 MG/ML, 1ML IVPush PRN ×4 (08:21→21:36)
[2019-04-26] MEDS: TEMPLATE NON-FORMULARY MED. (SPIRIVA 1 INH) INH SCH (08:21)
[2019-04-26 13:27] VITALS: BP 155/68
[2019-04-26] MEDS ORDERED: WARFARIN 7.5 MG TABLET PO-COUM SCH (18:00)
[2019-04-26 18:43] VITALS: BP 134/72
[2019-04-27 00:52] VITALS: BP 164/73
[2019-04-27] MEDS: OXYcodone IR 5MG TABLET PO PRN ×4 (01:53→20:15)
[2019-04-27] MEDS: AMPICILLIN/SULBACTAM 3 GM in SODIUM CHLORIDE 0.9% 100 ML IV SCH ×2 (03:54→08:58)
[2019-04-27] MEDS: MORPHINE SULFATE 4 MG/ML, 1ML IVPush PRN ×3 (03:54→22:10)
[2019-04-27 05:00] LABS: INTERNATIONAL NORMALIZED RATIO 4.19 (0.93-1.1); PROTHROMBIN TIME 41.6 Seconds (9.6-11.5)
[2019-04-27 07:00] VITALS: BP 136/73
[2019-04-27] MEDS: INSULIN LISPRO 100 UNITS/ML, PEN SQ-INSULIN SCH ×4 (08:15→20:33)
[2019-04-27 08:32] LABS: INTERNATIONAL NORMALIZED RATIO 3.36 (0.93-1.1); PROTHROMBIN TIME 33.7 Seconds (9.6-11.5)
[2019-04-27] MEDS: TEMPLATE NON-FORMULARY MED. (SPIRIVA 1 INH) INH SCH (08:54)
[2019-04-27 12:03] LABS: INTERNATIONAL NORMALIZED RATIO 1.81 (0.93-1.1); PROTHROMBIN TIME 18.6 Seconds (9.6-11.5)
[2019-04-27] MEDS: ARGATROBAN 250 MG in SODIUM CHLORIDE 0.9% 247.5 ML IV PRN (13:51)
[2019-04-27 14:10] VITALS: BP 123/65
[2019-04-27] MEDS ORDERED: WARFARIN 7.5 MG TABLET PO-COUM SCH (18:00)
[2019-04-27 19:03] VITALS: BP 108/64
[2019-04-27 19:12] VITALS: BP 124/68
[2019-04-28] MEDS: OXYcodone IR 5MG TABLET PO PRN ×5 (00:01→21:31)
[2019-04-28 01:41] VITALS: BP 149/72
[2019-04-28] MEDS: MORPHINE SULFATE 4 MG/ML, 1ML IVPush PRN ×4 (03:03→23:42)
[2019-04-28] MEDS: ARGATROBAN 250 MG in SODIUM CHLORIDE 0.9% 247.5 ML IV PRN (03:17)
[2019-04-28 06:27] LABS: PARTIAL THROMBOPLASTIN TIME 100 Seconds (25-31)
[2019-04-28 06:29] LABS: INTERNATIONAL NORMALIZED RATIO 6.45 (0.93-1.1); PROTHROMBIN TIME > 50.0 Seconds (9.6-11.5)
[2019-04-28] MEDS: INSULIN LISPRO 100 UNITS/ML, PEN SQ-INSULIN SCH ×4 (07:00→21:00)
[2019-04-28 07:06] VITALS: BP 168/67
[2019-04-28] MEDS ORDERED: [UNRECOGNIZED DRUG - REMARK] XX PRN (07:30)
[2019-04-28] MEDS: DOCUSATE 100 MG CAPSULE PO PRN (08:29)
[2019-04-28] MEDS: TEMPLATE NON-FORMULARY MED. (SPIRIVA 1 INH) INH SCH (08:33)
[2019-04-28 12:05] LABS: INTERNATIONAL NORMALIZED RATIO 4.31 (0.93-1.1); PROTHROMBIN TIME 42.8 Seconds (9.6-11.5)
[2019-04-28 15:10] VITALS: BP 124/69
[2019-04-28 16:10] LABS: INTERNATIONAL NORMALIZED RATIO 2.45 (0.93-1.1); PROTHROMBIN TIME 24.9 Seconds (9.6-11.5)
[2019-04-28] MEDS ORDERED: WARFARIN 7.5 MG TABLET PO-COUM SCH (18:00)
[2019-04-28 19:07] VITALS: BP 131/67
[2019-04-29 00:58] VITALS: BP 132/70
[2019-04-29] MEDS: OXYcodone IR 5MG TABLET PO PRN ×5 (02:30→21:21)
[2019-04-29 06:18] LABS: INTERNATIONAL NORMALIZED RATIO 2.6 (0.93-1.1); PROTHROMBIN TIME 26.3 Seconds (9.6-11.5)
[2019-04-29 06:48] VITALS: BP 124/73
[2019-04-29] MEDS: INSULIN LISPRO 100 UNITS/ML, PEN SQ-INSULIN SCH ×4 (07:41→21:00)
[2019-04-29] MEDS: TEMPLATE NON-FORMULARY MED. (SPIRIVA 1 INH) INH SCH (07:42)
[2019-04-29 14:51] VITALS: BP 132/72
[2019-04-29] MEDS ORDERED: WARFARIN 3 MG TABLET PO-COUM SCH (18:00)
[2019-04-29 18:51] VITALS: BP 114/69
[2019-04-30 00:37] VITALS: BP 145/69
[2019-04-30] MEDS: OXYcodone IR 5MG TABLET PO PRN ×4 (02:53→20:03)
[2019-04-30 05:38] LABS: INTERNATIONAL NORMALIZED RATIO 2.66 (0.93-1.1); PROTHROMBIN TIME 26.9 Seconds (9.6-11.5)
[2019-04-30] MEDS: INSULIN LISPRO 100 UNITS/ML, PEN SQ-INSULIN SCH ×4 (07:00→21:30)
[2019-04-30 07:05] VITALS: BP 144/73
[2019-04-30] MEDS: TEMPLATE NON-FORMULARY MED. (SPIRIVA 1 INH) INH SCH (07:47)
[2019-04-30 14:46] VITALS: BP 119/71
[2019-04-30] MEDS ORDERED: WARFARIN 3 MG TABLET PO-COUM ONE (18:00)
[2019-04-30 19:30] VITALS: BP 100/52
[2019-05-01] MEDS: OXYcodone IR 5MG TABLET PO PRN ×6 (00:21→23:37)
[2019-05-01 00:52] VITALS: BP 103/47
[2019-05-01 05:34] LABS: INTERNATIONAL NORMALIZED RATIO 2.95 (0.93-1.1); PROTHROMBIN TIME 29.7 Seconds (9.6-11.5)
[2019-05-01 06:57] VITALS: BP 115/55
[2019-05-01] MEDS: INSULIN LISPRO 100 UNITS/ML, PEN SQ-INSULIN SCH ×4 (07:00→19:50)
[2019-05-01] MEDS: TEMPLATE NON-FORMULARY MED. (SPIRIVA 1 INH) INH SCH (07:28)
[2019-05-01 12:57] VITALS: BP 108/64
[2019-05-01] MEDS ORDERED: WARFARIN 2 MG TABLET PO-COUM ONE (17:18)
[2019-05-01] MEDS ORDERED: WARFARIN 3 MG TABLET PO-COUM ONE (17:18)
[2019-05-01] MEDS ORDERED: WARFARIN 5 MG TABLET PO-COUM ONE (18:00)
[2019-05-01 19:00] VITALS: BP 119/66
[2019-05-02 02:08] VITALS: BP 127/69
[2019-05-02] MEDS: OXYcodone IR 5MG TABLET PO PRN ×5 (04:30→20:30)
[2019-05-02 05:04] LABS: INTERNATIONAL NORMALIZED RATIO 4.15 (0.93-1.1); PROTHROMBIN TIME 41.3 Seconds (9.6-11.5)
[2019-05-02] MEDS: INSULIN LISPRO 100 UNITS/ML, PEN SQ-INSULIN SCH ×4 (07:00→20:29)
[2019-05-02 07:13] VITALS: BP 134/64
[2019-05-02] MEDS: TEMPLATE NON-FORMULARY MED. (SPIRIVA 1 INH) INH SCH (08:03)
[2019-05-02 14:02] VITALS: BP 144/69
[2019-05-02] MEDS ORDERED: [UNRECOGNIZED DRUG - REMARK] MC ONE (18:00)
[2019-05-02 19:28] VITALS: BP 132/71
[2019-05-03] MEDS: OXYcodone IR 5MG TABLET PO PRN ×5 (00:32→21:21)
[2019-05-03 01:42] VITALS: BP 113/66
[2019-05-03 05:28] LABS: INTERNATIONAL NORMALIZED RATIO 3.17 (0.93-1.1); PROTHROMBIN TIME 31.8 Seconds (9.6-11.5)
[2019-05-03 07:11] VITALS: BP 116/70
[2019-05-03] MEDS: INSULIN LISPRO 100 UNITS/ML, PEN SQ-INSULIN SCH ×4 (07:43→21:00)
[2019-05-03] MEDS: TEMPLATE NON-FORMULARY MED. (SPIRIVA 1 INH) INH SCH (07:44)
[2019-05-03 14:00] VITALS: BP 152/52
[2019-05-03 14:03] LABS: BASOPHILS # (AUTO) 0.03 x10^3/uL (0-0.1); BASOPHILS % (AUTO) 1 % (0-1); EOSINOPHILS # (AUTO) 0.28 x10^3/uL (0-0.4); EOSINOPHILS % (AUTO) 4 % (1-7); LYMPHOCYTES # (AUTO) 0.98 x10^3/uL (1-3.4); LYMPHOCYTES % (AUTO) 14 % (22-44); MD NO; MEAN CORPUSCULAR HEMOGLOBIN 30.1 pg (27.0-34.8); MEAN CORPUSCULAR HGB CONC 31.9 g/dL (32.4-35.8); MEAN CORPUSCULAR VOLUME 94.3 fL (80-100); MEAN PLATELET VOLUME 8.5 fL (7.4-10.4); MONOCYTES # (AUTO) 0.51 x10^3/uL (0.2-0.8); MONOCYTES % (AUTO) 7 % (2-9); NEUTROPHILS # (AUTO) 5.11 x10^3/uL (1.8-6.8); NEUTROPHILS % (AUTO) 74 % (42-75); PLATELET COUNT 205 x10^3/uL (130-400); RED BLOOD COUNT 3.48 x10^6/uL (3.82-5.3); RED CELL DISTRIBUTION WIDTH 16.5 % (9.6-15.2)
[2019-05-03 14:04] LABS: ANION GAP 8 mmol/L (5-15); CALCIUM 8.6 mg/dL (8.5-10.1); CHLORIDE 107 mmol/L (98-107); CREATININE 0.63 mg/dL (0.55-1.02)
[2019-05-03 14:05] LABS: ALANINE AMINOTRANSFERASE 18 U/L (12-78); ALBUMIN 2.5 g/dL (3.4-5.0)
[2019-05-03 14:07] LABS: ALKALINE PHOSPHATASE 140 U/L (45-117); BILIRUBIN,TOTAL 0.2 mg/dL (0.2-1.0); TOTAL PROTEIN 6.3 g/dL (6.4-8.2)
[2019-05-03] MEDS ORDERED: WARFARIN 2 MG TABLET PO-COUM ONE (18:00)
[2019-05-03 19:29] VITALS: BP 135/76
[2019-05-04] MEDS: OXYcodone IR 5MG TABLET PO PRN ×3 (00:59→09:38)
[2019-05-04 02:00] VITALS: BP 129/66
[2019-05-04 05:46] LABS: BASOPHILS # (AUTO) 0.02 x10^3/uL (0-0.1); BASOPHILS % (AUTO) 0 % (0-1); EOSINOPHILS # (AUTO) 0.27 x10^3/uL (0-0.4); EOSINOPHILS % (AUTO) 4 % (1-7); LYMPHOCYTES # (AUTO) 1.01 x10^3/uL (1-3.4); LYMPHOCYTES % (AUTO) 15 % (22-44); MD NO; MEAN CORPUSCULAR HGB CONC 31.8 g/dL (32.4-35.8); MEAN CORPUSCULAR VOLUME 94.1 fL (80-100); MEAN PLATELET VOLUME 8.5 fL (7.4-10.4); MONOCYTES % (AUTO) 9 % (2-9); NEUTROPHILS # (AUTO) 4.87 x10^3/uL (1.8-6.8); NEUTROPHILS % (AUTO) 72 % (42-75); PLATELET COUNT 192 x10^3/uL (130-400); RED BLOOD COUNT 3.44 x10^6/uL (3.82-5.3); RED CELL DISTRIBUTION WIDTH 16.6 % (9.6-15.2)
[2019-05-04 05:58] LABS: CHLORIDE 109 mmol/L (98-107)
[2019-05-04 06:02] LABS: ALANINE AMINOTRANSFERASE 20 U/L (12-78); ALBUMIN 2.5 g/dL (3.4-5.0); ALKALINE PHOSPHATASE 129 U/L (45-117); ANION GAP 4 mmol/L (5-15); BILIRUBIN,TOTAL 0.3 mg/dL (0.2-1.0); CALCIUM 8.8 mg/dL (8.5-10.1); CREATININE 0.57 mg/dL (0.55-1.02); INTERNATIONAL NORMALIZED RATIO 2.15 (0.93-1.1); PROTHROMBIN TIME 21.9 Seconds (9.6-11.5); TOTAL PROTEIN 6.3 g/dL (6.4-8.2)
[2019-05-04] MEDS: INSULIN LISPRO 100 UNITS/ML, PEN SQ-INSULIN SCH ×2 (07:00→11:00)
[2019-05-04] MEDS: TEMPLATE NON-FORMULARY MED. (SPIRIVA 1 INH) INH SCH (09:00)
[2019-05-04 09:20] VITALS: BP 138/79
== END 2019-05-04 11:30 | DRG 271 ==
LOC: ED 03-30 00:16 → EDIP 03-30 02:29 → 4NE 03-30 03:03 → 4NW 03-30 15:18 → CCU 03-30 16:40 → 4NW 04-01 15:52 → CCU 04-04 23:58 → 4NW 04-05 13:59
PROVIDERS: ADMIT Internal Medicine; ATTEND Family Medicine
PROC: 04HM33Z Insertion of Infusion Device into Right Popliteal Artery, Percutaneous Approach (ICD-10-PCS; 2019-03-30)
PROC: B4101ZZ Fluoroscopy of Abdominal Aorta using Low Osmolar Contrast (ICD-10-PCS; 2019-03-30)
PROC: B41F1ZZ Fluoroscopy of Right Lower Extremity Arteries using Low Osmolar Contrast (ICD-10-PCS; 2019-03-30)
PROC: 3E05317 Introduction of Other Thrombolytic into Peripheral Artery, Percutaneous Approach (ICD-10-PCS; 2019-03-30)
PROC: 3E05317 Introduction of Other Thrombolytic into Peripheral Artery, Percutaneous Approach (ICD-10-PCS; 2019-03-30)
PROC: 0KNS0ZZ Release Right Lower Leg Muscle, Open Approach (ICD-10-PCS; 2019-03-31)
PROC: 0KNS0ZZ Release Right Lower Leg Muscle, Open Approach (ICD-10-PCS; 2019-03-31)
PROC: 0KNS0ZZ Release Right Lower Leg Muscle, Open Approach (ICD-10-PCS; 2019-03-31)
PROC: 0KNS0ZZ Release Right Lower Leg Muscle, Open Approach (ICD-10-PCS; 2019-03-31)
PROC: B41G1ZZ Fluoroscopy of Left Lower Extremity Arteries using Low Osmolar Contrast (ICD-10-PCS; 2019-03-31)
PROC: B41F1ZZ Fluoroscopy of Right Lower Extremity Arteries using Low Osmolar Contrast (ICD-10-PCS; 2019-03-31)
PROC: 04PYX3Z Removal of Infusion Device from Lower Artery, External Approach (ICD-10-PCS; 2019-03-31)
PROC: 30233R1 Transfusion of Nonautologous Platelets into Peripheral Vein, Percutaneous Approach (ICD-10-PCS; 2019-04-01)
PROC: 04CC0ZZ Extirpation of Matter from Right Common Iliac Artery, Open Approach (ICD-10-PCS; 2019-04-04)
PROC: 04CL0ZZ Extirpation of Matter from Left Femoral Artery, Open Approach (ICD-10-PCS; 2019-04-04)
PROC: 04CN0ZZ Extirpation of Matter from Left Popliteal Artery, Open Approach (ICD-10-PCS; 2019-04-04)
PROC: 04CS0ZZ Extirpation of Matter from Left Posterior Tibial Artery, Open Approach (ICD-10-PCS; 2019-04-04)
PROC: 047C34Z Dilation of Right Common Iliac Artery with Drug-eluting Intraluminal Device, Percutaneous Approach (ICD-10-PCS; 2019-04-04)
PROC: 041K0JJ Bypass Right Femoral Artery to Left Femoral Artery with Synthetic Substitute, Open Approach (ICD-10-PCS; 2019-04-04)
PROC: B41D1ZZ Fluoroscopy of Aorta and Bilateral Lower Extremity Arteries using Low Osmolar Contrast (ICD-10-PCS; 2019-04-04)
PROC: 30233N1 Transfusion of Nonautologous Red Blood Cells into Peripheral Vein, Percutaneous Approach (ICD-10-PCS; 2019-04-04)
PROC: 04CD0ZZ Extirpation of Matter from Left Common Iliac Artery, Open Approach (ICD-10-PCS; principal; 2019-04-04 19:00)
PROC: 0KBS0ZZ Excision of Right Lower Leg Muscle, Open Approach (ICD-10-PCS; 2019-04-22)
PROC: 0Y6C0Z1 Detachment at Right Upper Leg, High, Open Approach (ICD-10-PCS; 2019-04-22)
DX: I74.3 Embolism and thrombosis of arteries of the lower extremities (principal); C20 Malignant neoplasm of rectum; C78.00 Secondary malignant neoplasm of unspecified lung; C78.7 Secondary malignant neoplasm of liver and intrahepatic bile duct; C64.9 Malignant neoplasm of unspecified kidney, except renal pelvis; D62 Acute posthemorrhagic anemia; I31.3 Pericardial effusion (noninflammatory); I50.32 Chronic diastolic (congestive) heart failure; M79.A21 Nontraumatic compartment syndrome of right lower extremity; I70.221 Atherosclerosis of native arteries of extremities with rest pain, right leg; D69.59 Other secondary thrombocytopenia; T45.1X5A Adverse effect of antineoplastic and immunosuppressive drugs, initial encounter; D63.8 Anemia in other chronic diseases classified elsewhere; E11.51 Type 2 diabetes mellitus with diabetic peripheral angiopathy without gangrene; I27.20 Pulmonary hypertension, unspecified; I99.8 Other disorder of circulatory system; J44.9 Chronic obstructive pulmonary disease, unspecified; M21.371 Foot drop, right foot; R79.1 Abnormal coagulation profile; Z79.01 Long term (current) use of anticoagulants; Z79.4 Long term (current) use of insulin; Y92.098 Other place in other non-institutional residence as the place of occurrence of the external cause; Z80.1 Family history of malignant neoplasm of trachea, bronchus and lung; Z85.048 Personal history of other malignant neoplasm of rectum, rectosigmoid junction, and anus; Z85.118 Personal history of other malignant neoplasm of bronchus and lung; Z87.891 Personal history of nicotine dependence; Z90.710 Acquired absence of both cervix and uterus; Z98.51 Tubal ligation status; Z90.49 Acquired absence of other specified parts of digestive tract; Z91.048 Other nonmedicinal substance allergy status; Z79.51 Long term (current) use of inhaled steroids; Z79.899 Other long term (current) drug therapy
CPT/HCPCS: 36415; 37211; 37212; 37214; 74176; 75710; 80048; 80053; 80061; 82247; 82330; 82542; 82803; 82947; 82962; 83036; 83605; 83735; 84100; 84132; 84295; 84439; 84443; 85014; 85018; 85025; 85347; 85384; 85520; 85610; 85730; 86022; 86850; 86900; 86923; 87081; 87324; 93306; 93922; 96374; 96375; 96376; 99156; 99157; C1729; C1894; G0378; J0295; J0690; J0883; J1100; J1644; J1650; J1885; J2250; J2270; J2405; J2704; J2720; J2997; J3010; J3490; P9045; Q9966; Q9967; C1751; C1757; C1760; C1768; C1769; G0269; J0330; J0360; J1815; J2310; J2370; J2440; J7030; J7050; J7120; P9037; P9040

== ENCOUNTER → 2019-06-29 | Outpatient (CLI) | payer MEDICARE, MEDICAID ==
[~2019-06-29] MED LIST changes: +ACET325T26 PO; +FLUT1BLS3 IH; +HYDR-2995 PO; +OMNIPAQUE 350 MG/ML, 100ML BOTTLE ONE; +ONDA4TAB13 PO; +OXYC5TAB3 PO; +POLY17PO5 PO; +WARF4TAB65 PO
== END | disposition home or self-care (01) ==
LOC: CFH 11:58
PROVIDERS: ATTEND Internal Medicine
DX: C78.01 Secondary malignant neoplasm of right lung (principal); C78.02 Secondary malignant neoplasm of left lung; C78.7 Secondary malignant neoplasm of liver and intrahepatic bile duct; C20 Malignant neoplasm of rectum; K76.0 Fatty (change of) liver, not elsewhere classified; I70.0 Atherosclerosis of aorta; M85.88 Other specified disorders of bone density and structure, other site; M41.80 Other forms of scoliosis, site unspecified; R16.0 Hepatomegaly, not elsewhere classified
CPT/HCPCS: 71260; 74177; Q9967

== ENCOUNTER 2019-10-01 12:33 | Outpatient (CLI) | payer MEDICARE, MEDICAID ==
[~2019-10-01 12:33] MED LIST changes: -OMNIPAQUE 350 MG/ML, 100ML BOTTLE ONE
[2019-10-01] MEDS ORDERED: OMNIPAQUE 350 MG/ML, 100ML BOTTLE ONE (13:34)
== END 2019-10-01 23:59 | disposition home or self-care (01) ==
LOC: CFH 12:33
PROVIDERS: ATTEND Internal Medicine
DX: C20 Malignant neoplasm of rectum (principal); C78.00 Secondary malignant neoplasm of unspecified lung; C78.7 Secondary malignant neoplasm of liver and intrahepatic bile duct
CPT/HCPCS: 71260; 74177; Q9967